=== PATIENT | female | born 1935 | race Caucasian/White ===

== ENCOUNTER 2020-11-12 11:38 | Outpatient (CLI) | payer MEDICARE ==
--- NOTE | 2020-11-12 12:52 | MMO ---
Bilateral MAMMO Bilat Screen [facility]. CLINICAL HISTORY: Patient is 85 years old and is seen for screening. The patient has no family history of breast cancer. The patient has no personal history of cancer. The patient has a history of left Excisional Biopsy in 2000 - benign findings and right Excisional Biopsy in ? - benign findings. VIEWS: The views performed were: bilateral craniocaudal with tomosynthesis and bilateral mediolateral oblique with tomosynthesis. FILMS COMPARED: The present examination has been compared to prior imaging studies performed at [facility] on 12/31/2015, 02/24/2017, 03/22/2018 and 04/25/2019. This study has been interpreted with the assistance of computer-aided detection. MAMMOGRAM FINDINGS: There are scattered fibroglandular densities. There are stable benign appearing calcifications seen in both breasts. There are no suspicious masses, suspicious calcifications, or new areas of architectural distortion. IMPRESSION: THERE IS NO MAMMOGRAPHIC EVIDENCE OF MALIGNANCY. A ROUTINE FOLLOW-UP MAMMOGRAM IN 1 YEAR IS RECOMMENDED. THE RESULTS OF THIS EXAM WERE SENT TO THE PATIENT. ACR BI-RADS Category 2 - Benign finding MAMMOGRAPHY NOTE: 1. A negative mammogram report should not delay a biopsy if a dominant of clinically suspicious mass is present. 2. Approximately 10% to 15% of breast cancers are not detected by mammography. 3. Adenosis and dense breasts may obscure an underlying neoplasm. Reported by: ANNELISE CANTU MD Electonically Signed: [id number]
== END 2020-11-12 11:39 | disposition home or self-care (01) ==
LOC: BICMAMMO 11:38
PROVIDERS: ATTEND Internal Medicine
DX: Z12.31 Encounter for screening mammogram for malignant neoplasm of breast (principal); Z91.89 Other specified personal risk factors, not elsewhere classified
CPT/HCPCS: 77063; 77067

== ENCOUNTER 2021-06-30 16:53 | Emergency (ER) | payer MEDICARE ==
[2021-06-30 19:00] LABS: #Basophils 0.1 thou/uL (0.0-0.2); #Eosinphils 0.1 thou/uL (0.0-0.7); #Lymphocytes 1.6 thou/uL (1.20-3.40); #Monocytes 0.5 thou/uL (0.11-0.59); #Neutrophils 4.1 thou/uL (1.40-6.50); %Basophils 0.8 % (0.0-1.0); %Lymphocytes 25.7 % (21.0-51.0); %Monocytes 7.4 % (0.0-10.0); %Neutrophils 64.1 % (42.0-75.0); Hemoglobin 14.2 g/dL (12.0-16.0); Mean Corpuscular HGB CONC 33.1 g/dL (32.0-36.0); Mean Corpuscular Hemoglobin 31.3 pg (27.0-31.0); Mean Corpuscular Volume 94.5 fL (78.0-98.0); Mean Platelet Volume 8.5 fL (7.4-10.4); Platelet Count 158 thou/uL (130-400); RBC Distribution Width 12.6 % (11.5-14.5); Red Blood Cell (RBC) Count 4.53 mill/uL (4.20-5.40); White Blood Cell (WBC) Count 6.4 thou/uL (4.8-10.8)
[2021-06-30 19:10] LABS: Prothrombin Time 13.7 sec (12.0-14.7)
[2021-06-30 19:33] LABS: ALT (SGPT) 18 U/L (8-55); AST (SGOT) 26 U/L (5-34); Albumin 4.4 g/dL (3.4-4.8); Alkaline Phosphatase 97 U/L (40-110); Anion Gap 14 mmol/L (10-20); BUN (Urea Nitrogen) 12 mg/dL (9.8-20.1); Bilirubin, Total 1.2 mg/dL (0.2-1.2); Calc. Creatinine Clearance 0 mL/min (70-130); Calcium 10.1 mg/dL (7.8-10.44); Carbon Dioxide 25 mmol/L (23-31); Chloride 105 mmol/L (98-107); Globulin 3.1 g/dL (2.4-3.5); Glucose 94 mg/dL (83-110); Potassium 3.6 mmol/L (3.5-5.1); Protein, Total 7.5 g/dL (5.8-8.1); Sodium 140 mmol/L (136-145)
== END 2021-06-30 19:35 | disposition home or self-care (01) ==
LOC: ERS 16:53
DX: D68.9 Coagulation defect, unspecified (principal); Z79.899 Other long term (current) drug therapy; Z79.82 Long term (current) use of aspirin; G47.30 Sleep apnea, unspecified; I48.91 Unspecified atrial fibrillation; I11.0 Hypertensive heart disease with heart failure; I50.9 Heart failure, unspecified; J43.9 Emphysema, unspecified; Z87.891 Personal history of nicotine dependence
CPT/HCPCS: 36415; 80053; 85025; 85610; 85730; 99283

== ENCOUNTER 2022-02-24 08:29 | Inpatient (IN) | payer MEDICARE ==
[2022-02-24] MEDS ORDERED: Ondansetron PF 4 MG/2 ML Vial ONE (09:14)
[2022-02-24] MEDS ORDERED: methylPREDNISolone Sod Succ/PF 125 MG/2 ML VIAL ONE (09:14)
[2022-02-24 09:30] LABS: #Basophils 0.1 thou/uL (0.0-0.2); #Eosinphils 0.3 thou/uL (0.0-0.7); #Lymphocytes 0.8 thou/uL (1.20-3.40); #Monocytes 0.6 thou/uL (0.11-0.59); #Neutrophils 5.9 thou/uL (1.40-6.50); %Basophils 1.1 % (0.0-1.0); %Eosinophils 4.3 % (0.0-10.0); %Lymphocytes 10.5 % (21.0-51.0); %Monocytes 7.5 % (0.0-10.0); %Neutrophils 76.6 % (42.0-75.0); Hemoglobin 13.7 g/dL (12.0-16.0); Mean Corpuscular HGB CONC 33.2 g/dL (32.0-36.0); Mean Corpuscular Hemoglobin 31.7 pg (27.0-31.0); Mean Corpuscular Volume 95.5 fL (78.0-98.0); Platelet Count 182 thou/uL (130-400); RBC Distribution Width 12.3 % (11.5-14.5); Red Blood Cell (RBC) Count 4.33 mill/uL (4.20-5.40); White Blood Cell (WBC) Count 7.7 thou/uL (4.8-10.8)
[2022-02-24 09:40] LABS: Prothrombin Time 13.4 sec (12.0-14.7)
[2022-02-24 09:50] LABS: ALT (SGPT) 19 U/L (8-55); AST (SGOT) 27 U/L (5-34); Albumin 4.1 g/dL (3.4-4.8); Alkaline Phosphatase 95 U/L (40-110); Anion Gap 12 mmol/L (10-20); BUN (Urea Nitrogen) 15 mg/dL (9.8-20.1); Bilirubin, Total 0.7 mg/dL (0.2-1.2); Calc. Creatinine Clearance 0 mL/min (70-130); Calcium 9.7 mg/dL (7.8-10.44); Carbon Dioxide 28 mmol/L (23-31); Chloride 105 mmol/L (98-107); Globulin 2.9 g/dL (2.4-3.5); Glucose 102 mg/dL (83-110); Potassium 3.7 mmol/L (3.5-5.1); Sodium 141 mmol/L (136-145)
[2022-02-24] MEDS ORDERED: Aspirin Chewable 81 MG TAB ONE (12:01)
[2022-02-24 13:02] LABS: Troponin I 0.065 ng/mL (< 0.028)
[2022-02-24] MEDS ORDERED: Acetaminophen 325 MG TAB PO PRN (13:02)
[2022-02-24] MEDS ORDERED: Calcium Carbonate 500 MG ChewTAB PO PRN (13:02)
[2022-02-24] MEDS ORDERED: Ondansetron ODT 4 MG TAB PO PRN (13:02)
[2022-02-24] MEDS ORDERED: Albuterol Sulfate 2.5 mg/3 ml Neb NEB PRN (13:20)
[2022-02-24] MEDS ORDERED: Azithromycin 250 MG TAB PO SCH (13:30)
[2022-02-24] MEDS ORDERED: Simethicone Chewable 80 MG TAB PO PRN (15:10)
[2022-02-24 15:16] LABS: Troponin I 0.083 ng/mL (< 0.028)
[2022-02-24 15:26] LABS: SARS-CoV-2 PCR by NAA Not Detected (NotDetected)
[2022-02-24 17:55] LABS: Troponin I 0.092 ng/mL (< 0.028)
[2022-02-24] MEDS: ALPRAZolam 0.25 MG TAB PO SCH (20:01)
[2022-02-24] MEDS: Rosuvastatin 10 MG TAB PO SCH (20:02)
[2022-02-24] MEDS: Apixaban 2.5 MG TAB PO SCH (20:02)
[2022-02-24 20:52] LABS: Troponin I 0.084 ng/mL (< 0.028)
[2022-02-24 23:32] LABS: Troponin I 0.084 ng/mL (< 0.028)
[2022-02-25] MEDS: Digoxin 0.125 MG TAB PO SCH (08:52)
[2022-02-25] MEDS: predniSONE 20 MG TAB PO SCH (08:53)
[2022-02-25] MEDS: Senokot S 8.6-50 MG TAB PO PRN ×2 (08:53→20:48)
[2022-02-25] MEDS: Potassium Chloride 10 MEQ TAB PO SCH (08:53)
[2022-02-25] MEDS: Lisinopril 20 MG TAB PO SCH (08:53)
[2022-02-25] MEDS: Furosemide 40 MG TAB PO SCH (08:53)
[2022-02-25] MEDS: Multivitamin W/ Minerals 1 TAB PO SCH (08:53)
[2022-02-25] MEDS: Aspirin 81 mg Enteric Coated Tablet PO SCH (08:53)
[2022-02-25] MEDS: Apixaban 2.5 MG TAB PO SCH ×2 (08:53→20:48)
[2022-02-25] MEDS: Calcium Carbonate 600 MG TAB PO SCH (08:53)
[2022-02-25] MEDS ORDERED: Doxycycline 100 MG CAP PO SCH (09:00)
[2022-02-25 09:57] VITALS: BMI 19.1
[2022-02-25] MEDS ORDERED: Azithromycin 250 MG TAB PO SCH (14:00)
[2022-02-25] MEDS: Doxycycline 100 MG CAP PO SCH (20:48)
[2022-02-25] MEDS: ALPRAZolam 0.25 MG TAB PO SCH (20:48)
[2022-02-25] MEDS: guaiFENesin ER 600 MG TAB PO SCH (20:49)
[2022-02-25] MEDS: Rosuvastatin 10 MG TAB PO SCH (20:49)
[2022-02-26] MEDS ORDERED: Docusate 100 MG CAP PO PRN (06:14)
[2022-02-26] MEDS: Potassium Chloride 10 MEQ TAB PO SCH (08:23)
[2022-02-26] MEDS: Apixaban 2.5 MG TAB PO SCH (08:24)
[2022-02-26] MEDS: predniSONE 20 MG TAB PO SCH (08:24)
[2022-02-26] MEDS: Calcium Carbonate 600 MG TAB PO SCH (08:25)
[2022-02-26] MEDS: Aspirin 81 mg Enteric Coated Tablet PO SCH (08:25)
[2022-02-26] MEDS: Furosemide 40 MG TAB PO SCH (08:26)
[2022-02-26] MEDS: Doxycycline 100 MG CAP PO SCH (08:27)
[2022-02-26] MEDS: Digoxin 0.125 MG TAB PO SCH (08:28)
[2022-02-26] MEDS: Lisinopril 20 MG TAB PO SCH (08:28)
[2022-02-26] MEDS: Multivitamin W/ Minerals 1 TAB PO SCH (08:29)
[2022-02-26] MEDS: guaiFENesin ER 600 MG TAB PO SCH (08:30)
[2022-02-26] MEDS ORDERED: Senokot S 8.6-50 MG TAB PO SCH (09:00)
[2022-02-26] MEDS ORDERED: Azithromycin 250 MG TAB PO SCH (09:00)
[2022-02-26 12:40] VITALS: BP 160/72; TEMP 97.5
== END 2022-02-26 15:05 | disposition home or self-care (01) | DRG 191 ==
LOC: ERS 08:29 → 2SW 11:55 → OBSVTOIN 02-25 08:59
PROVIDERS: ADMIT Family Medicine; ATTEND Family Medicine
DX: J43.9 Emphysema, unspecified (principal); I48.20 Chronic atrial fibrillation, unspecified; I50.32 Chronic diastolic (congestive) heart failure; Z66 Do not resuscitate; Z20.822 Contact with and (suspected) exposure to COVID-19; I11.0 Hypertensive heart disease with heart failure; G47.33 Obstructive sleep apnea (adult) (pediatric); Z99.81 Dependence on supplemental oxygen; Z99.89 Dependence on other enabling machines and devices; Z88.0 Allergy status to penicillin; Z88.8 Allergy status to other drugs, medicaments and biological substances; Z79.82 Long term (current) use of aspirin; Z79.01 Long term (current) use of anticoagulants; Z79.899 Other long term (current) drug therapy; Z90.710 Acquired absence of both cervix and uterus; Z90.09 Acquired absence of other part of head and neck; Z98.890 Other specified postprocedural states; Z82.3 Family history of stroke; Z82.49 Family history of ischemic heart disease and other diseases of the circulatory system; Z80.8 Family history of malignant neoplasm of other organs or systems; Z87.891 Personal history of nicotine dependence
CPT/HCPCS: 36415; 71045; 80053; 83605; 83880; 84484; 85025; 85610; 85730; 87040; 93005; 93306; 93798; 94640; 94760; 96374; 96375; G0378; J2405; J2930; J7512; J7620; U0003; U0005

== ENCOUNTER 2022-07-28 20:55 | Emergency (ER) | payer MEDICARE ==
[2022-07-28] MEDS ORDERED: Furosemide 40 MG/4 ML VIAL ONE (21:36)
[2022-07-28 22:02] LABS: #Basophils 0.1 thou/uL (0.0-0.2); #Eosinphils 0.1 thou/uL (0.0-0.7); #Lymphocytes 1.4 thou/uL (1.20-3.40); #Monocytes 0.6 thou/uL (0.11-0.59); %Basophils 1.3 % (0.0-1.0); %Eosinophils 1.4 % (0.0-10.0); %Lymphocytes 26.6 % (21.0-51.0); %Monocytes 12.1 % (0.0-10.0); %Neutrophils 58.6 % (42.0-75.0); Hemoglobin 8.8 g/dL (12.0-16.0); Mean Corpuscular Hemoglobin 28.7 pg (27.0-31.0); Mean Corpuscular Volume 89.7 fL (78.0-98.0); Mean Platelet Volume 8.8 fL (7.4-10.4); Platelet Count 174 thou/uL (130-400); RBC Distribution Width 14.5 % (11.5-14.5); Red Blood Cell (RBC) Count 3.06 mill/uL (4.20-5.40); White Blood Cell (WBC) Count 5.1 thou/uL (4.8-10.8)
[2022-07-28 22:26] LABS: ALT (SGPT) 34 U/L (8-55); AST (SGOT) 38 U/L (5-34); Albumin 3.6 g/dL (3.4-4.8); Alkaline Phosphatase 88 U/L (40-110); Anion Gap 12 mmol/L (10-20); BUN (Urea Nitrogen) 19 mg/dL (9.8-20.1); Bilirubin, Total 0.9 mg/dL (0.2-1.2); Calc. Creatinine Clearance 0 mL/min (70-130); Calcium 9.2 mg/dL (7.8-10.44); Carbon Dioxide 23 mmol/L (23-31); Chloride 109 mmol/L (98-107); Estimated GFR 48; Globulin 2.2 g/dL (2.4-3.5); Glucose 99 mg/dL (83-110); Potassium 3.5 mmol/L (3.5-5.1); Protein, Total 5.8 g/dL (5.8-8.1); Sodium 140 mmol/L (136-145)
[2022-07-28 23:19] LABS: Bilirubin Negative (Negative); Blood, Urine 1+ (Negative); Clarity Clear (Clear); Glucose, Urine (Dipstick) Normal (Negative); Ketone, Urine Negative (Negative); Leukocyte Negative Leu/uL (Negative); Nitrite Negative (Negative); Protein, Urine (Dipstick) 10 mg/dL (Neg-Trace); Specific Gravity, Urine 1.008 (1.002-1.036); Urobilinogen Normal mg/dL (Less than 2)
[2022-07-28 23:27] LABS: RBC/HPF 0-3 HPF (0-3); Squamous Epithelial 0-3 HPF (0-3); WBC/HPF 0-3 HPF (0-3)
[2022-07-28 23:28] LABS: Bacteria/HPF None Seen HPF (None Seen)
== END 2022-07-29 00:12 ==
LOC: ERS 20:55
DX: I11.0 Hypertensive heart disease with heart failure (principal); I50.9 Heart failure, unspecified; J43.9 Emphysema, unspecified; I48.91 Unspecified atrial fibrillation; Z87.891 Personal history of nicotine dependence; M79.605 Pain in left leg; M79.604 Pain in right leg
CPT/HCPCS: 71045; 80053; 81003; 81015; 83880; 85025; 93005; 93970; 96374; J1940

== ENCOUNTER 2022-08-11 12:16 | Outpatient (CLI) | payer MEDICARE | END 2022-08-11 12:17 | disposition home or self-care (01) | LOC: CT 12:16 | PROVIDERS: ATTEND Obstetrics & Gynecology | DX: R31.9 Hematuria, unspecified (principal); K80.20 Calculus of gallbladder without cholecystitis without obstruction; N28.89 Other specified disorders of kidney and ureter; K40.90 Unilateral inguinal hernia, without obstruction or gangrene, not specified as recurrent; I51.7 Cardiomegaly | CPT/HCPCS: 74176 ==

== ENCOUNTER 2022-08-12 04:57 | Inpatient (IN) | payer MEDICARE ==
[2022-08-12 05:39] LABS: #Basophils 0.1 thou/uL (0.0-0.2); #Lymphocytes 0.9 thou/uL (1.20-3.40); #Monocytes 0.6 thou/uL (0.11-0.59); #Neutrophils 2.4 thou/uL (1.40-6.50); %Basophils 1.2 % (0.0-1.0); %Eosinophils 0.6 % (0.0-10.0); %Lymphocytes 23.3 % (21.0-51.0); %Monocytes 14.6 % (0.0-10.0); %Neutrophils 60.2 % (42.0-75.0); Hemoglobin 6.7 g/dL (12.0-16.0); Mean Corpuscular Hemoglobin 27.3 pg (27.0-31.0); Mean Platelet Volume 8.5 fL (7.4-10.4); Platelet Count 177 thou/uL (130-400); RBC Distribution Width 15.2 % (11.5-14.5); Red Blood Cell (RBC) Count 2.47 mill/uL (4.20-5.40)
[2022-08-12 06:01] LABS: ALT (SGPT) 27 U/L (8-55); AST (SGOT) 47 U/L (5-34); Albumin 3.5 g/dL (3.4-4.8); Alkaline Phosphatase 71 U/L (40-110); Anion Gap 9 mmol/L (10-20); BUN (Urea Nitrogen) 22 mg/dL (9.8-20.1); Bilirubin, Total 0.8 mg/dL (0.2-1.2); Calc. Creatinine Clearance 0 mL/min (70-130); Calcium 9.1 mg/dL (7.8-10.44); Carbon Dioxide 26 mmol/L (23-31); Chloride 107 mmol/L (98-107); Estimated GFR 42; Globulin 2.3 g/dL (2.4-3.5); Glucose 91 mg/dL (83-110); Potassium 3.6 mmol/L (3.5-5.1); Protein, Total 5.8 g/dL (5.8-8.1); Sodium 138 mmol/L (136-145)
[2022-08-12 06:26] LABS: CKMB 7.9 ng/mL (0-6.6)
[2022-08-12 09:03] LABS: Troponin I 0.013 ng/mL (< 0.028)
[2022-08-12 09:50] LABS: Bilirubin Negative (Negative); Blood, Urine 3+ (Negative); Clarity Clear (Clear); Glucose, Urine (Dipstick) Normal (Negative); Ketone, Urine Negative (Negative); Leukocyte 75 Leu/uL (Negative); Nitrite Negative (Negative); Protein, Urine (Dipstick) 200 mg/dL (Neg-Trace); RBC/HPF Greater than 50 HPF (0-3); Specific Gravity, Urine 1.021 (1.002-1.036); Squamous Epithelial 0-3 HPF (0-3); Urobilinogen Normal mg/dL (Less than 2); WBC/HPF 21-50 HPF (0-3); pH, Urine 6.5 (5.0-9.0)
[2022-08-12 09:51] LABS: Bacteria/HPF 1+ HPF (None Seen)
[2022-08-12] MEDS ORDERED: Ondansetron ODT 4 MG TAB PO PRN (09:54)
[2022-08-12 10:02] LABS: Iron 14 ug/dL (50-170); Iron Binding Capacity, Total 496 mcg/dL (265-497); Reticulocyte Count 2.6 % (0.5-1.5)
[2022-08-12 10:14] LABS: Troponin I 0.031 ng/mL (< 0.028)
[2022-08-12] MEDS ORDERED: guaiFENesin ER 600 MG TAB PO PRN (11:04)
[2022-08-12] MEDS ORDERED: Furosemide 40 MG/4 ML VIAL SLOW IVP SCH (12:00)
[2022-08-12] MEDS ORDERED: Furosemide 40 MG/4 ML VIAL ONE (12:29)
[2022-08-12 13:26] LABS: SARS-CoV-2 NAA Rapid Test Not Detected (NotDetected)
[2022-08-12] MEDS ORDERED: FLU VACC QS2022-23(65YR UP)/PF 240 MCG/0.7 ML SYRINGE IM ONE (14:45)
[2022-08-12] MEDS ORDERED: GoLYTELY 4,000 ml Bottle PO SCH (17:30)
[2022-08-12] MEDS ORDERED: Non-Formulary Item 1 EACH (Potassium Chloride [Potassium Chloride] 20 MEQ Tablet.Er) PO SCH (21:00)
[2022-08-12] MEDS ORDERED: ALPRAZolam 0.5 MG TAB PO SCH (21:00)
[2022-08-12] MEDS ORDERED: ALPRAZolam 0.25 MG TAB PO SCH (21:00)
[2022-08-12] MEDS: Rosuvastatin 20 MG TAB PO SCH (21:16)
[2022-08-12] MEDS: Potassium Chloride 20 MEQ TAB PO SCH (21:16)
[2022-08-12] MEDS: Pantoprazole 40 MG VIAL IVP SCH (21:16)
[2022-08-13] MEDS ORDERED: Furosemide 40 MG/4 ML VIAL SLOW IVP SCH ×3 (04:45→15:45)
[2022-08-13 04:56] LABS: #Basophils 0.1 thou/uL (0.0-0.2); #Monocytes 0.8 thou/uL (0.11-0.59); #Neutrophils 3.6 thou/uL (1.40-6.50); %Basophils 1.1 % (0.0-1.0); %Eosinophils 0.5 % (0.0-10.0); %Lymphocytes 18.4 % (21.0-51.0); %Monocytes 14.4 % (0.0-10.0); %Neutrophils 65.6 % (42.0-75.0); Hemoglobin 7.9 g/dL (12.0-16.0); Mean Corpuscular HGB CONC 30.3 g/dL (32.0-36.0); Mean Corpuscular Volume 89.1 fL (78.0-98.0); Mean Platelet Volume 9.2 fL (7.4-10.4); Platelet Count 171 thou/uL (130-400); RBC Distribution Width 15.4 % (11.5-14.5); Red Blood Cell (RBC) Count 2.91 mill/uL (4.20-5.40); White Blood Cell (WBC) Count 5.4 thou/uL (4.8-10.8)
[2022-08-13 05:32] LABS: Anion Gap 13 mmol/L (10-20); BUN (Urea Nitrogen) 23 mg/dL (9.8-20.1); Calc. Creatinine Clearance 28 mL/min (70-130); Calcium 8.8 mg/dL (7.8-10.44); Carbon Dioxide 23 mmol/L (23-31); Chloride 104 mmol/L (98-107); Estimated GFR 44; Glucose 89 mg/dL (83-110); Potassium 3.6 mmol/L (3.5-5.1); Sodium 136 mmol/L (136-145)
[2022-08-13] MEDS ORDERED: Non-Formulary Item 1 EACH (Multivitamin/Iron/Folic Acid [Centrum Complete Multivitamin] 1 PO SCH (09:00)
[2022-08-13] MEDS ORDERED: Non-Formulary Item 1 EACH (Amlodipine Besylate [Norvasc] 2.5 MG Tablet) PO SCH (09:00)
[2022-08-13] MEDS ORDERED: PROPOFOL 200 MG/20 ML VIAL ONE ×2 (09:06→09:15)
[2022-08-13] MEDS ORDERED: Lidocaine 1% PF 5 ML VIAL ONE (09:15)
[2022-08-13] MEDS ORDERED: Ondansetron HCl/PF 4 MG/2 ML Vial IVP PRN (09:30)
[2022-08-13] MEDS ORDERED: GoLYTELY 4,000 ml Bottle PO SCH (09:32)
[2022-08-13] MEDS: Multivit, Therapeutic 1 TAB PO SCH (10:51)
[2022-08-13] MEDS: Calcium Carbonate 600 MG TAB PO SCH (10:51)
[2022-08-13] MEDS: Pantoprazole 40 MG VIAL IVP SCH ×2 (10:51→21:17)
[2022-08-13] MEDS: Amlodipine 5 MG TAB PO SCH (10:51)
[2022-08-13] MEDS: Potassium Chloride 20 MEQ TAB PO SCH ×2 (10:51→21:11)
[2022-08-13] MEDS: ALPRAZolam 1 MG TAB PO SCH (21:11)
[2022-08-13] MEDS: Rosuvastatin 20 MG TAB PO SCH (21:11)
[2022-08-14] MEDS ORDERED: Melatonin 3 MG TAB PO PRN (01:26)
[2022-08-14] MEDS ORDERED: Acetaminophen 325 MG TAB PO PRN (01:26)
[2022-08-14] MEDS ORDERED: Acetaminophen 325 MG TAB PO SCH (01:45)
[2022-08-14 06:41] LABS: Anion Gap 12 mmol/L (10-20); BUN (Urea Nitrogen) 19 mg/dL (9.8-20.1); Calc. Creatinine Clearance 27 mL/min (70-130); Calcium 9.1 mg/dL (7.8-10.44); Carbon Dioxide 31 mmol/L (23-31); Chloride 104 mmol/L (98-107); Estimated GFR 42; Glucose 89 mg/dL (83-110); Sodium 144 mmol/L (136-145)
[2022-08-14 06:46] LABS: Potassium 2.7 mmol/L (3.5-5.1)
[2022-08-14] MEDS ORDERED: Potassium Chloride 40 MEQ in Sodium Chloride 0.9% 250 ML 250 ML IVPB SCH (07:30)
[2022-08-14 08:46] LABS: Anisocytosis SLIGHT = 6-15 cells (100X) (0-5/hpf); Band 4 % (5-11); Eosinophils 1 % (0-10); Hemoglobin 7.9 g/dL (12.0-16.0); Hypochromia SLIGHT = 6-15 cells (100X) (0-5/hpf); Lymphocytes 17 % (21-51); MDiff Complete? YES; Mean Corpuscular HGB CONC 31.3 g/dL (32.0-36.0); Mean Corpuscular Hemoglobin 27.6 pg (27.0-31.0); Mean Corpuscular Volume 88.1 fL (78.0-98.0); Mean Platelet Volume 8.6 fL (7.4-10.4); Metamyelocyte 1 % (0-0); Monocytes 10 % (0-10); Neutrophil 65 % (42-75); Platelet Count 185 thou/uL (130-400); Platelet Morphology Comment Appears Adequate; Polychromasia SLIGHT = 2-3 cells (100X) (0-2/hpf); RBC Distribution Width 15.2 % (11.5-14.5); Reactive Lymphocytes 1 % (0-10); Red Blood Cell (RBC) Count 2.85 mill/uL (4.20-5.40); White Blood Cell (WBC) Count 4.9 thou/uL (4.8-10.8)
[2022-08-14] MEDS ORDERED: PROPOFOL 200 MG/20 ML VIAL ONE (09:26)
[2022-08-14] MEDS ORDERED: PHENYLEPHRINE-NS 100 MCG/ML 10 ML SYRINGE ONE (09:26)
[2022-08-14] MEDS ORDERED: Lidocaine 1% PF 5 ML VIAL ONE (09:26)
[2022-08-14] MEDS ORDERED: Promethazine HCl 25 MG/ML VIAL IVPB PRN ×2 (09:43→10:31)
[2022-08-14] MEDS ORDERED: Promethazine HCl 25 MG/ML VIAL IM PRN ×2 (09:43→10:31)
[2022-08-14] MEDS ORDERED: Ondansetron HCl/PF 4 MG/2 ML Vial IVP PRN ×2 (09:43→10:31)
[2022-08-14] MEDS ORDERED: Fentanyl 100 MCG/2 ML VIAL ONE (10:53)
[2022-08-14] MEDS ORDERED: Iron, Sodium Ferric Gluconate 250 MG in Sodium Chloride 0.9% 250 ML 250 ML IVPB SCH ×2 (11:47→16:36)
[2022-08-14] MEDS: Furosemide 40 MG/4 ML VIAL SLOW IVP SCH (12:29)
[2022-08-14] MEDS: Calcium Carbonate 600 MG TAB PO SCH (12:31)
[2022-08-14] MEDS: Multivit, Therapeutic 1 TAB PO SCH (12:31)
[2022-08-14] MEDS: Pantoprazole 40 MG VIAL IVP SCH ×2 (12:32→20:18)
[2022-08-14 14:10] LABS: Magnesium 2.2 mg/dL (1.6-2.6)
[2022-08-14] MEDS: Amlodipine 5 MG TAB PO SCH (15:42)
[2022-08-14] MEDS: Potassium Chloride 20 MEQ TAB PO SCH ×2 (15:43→18:19)
[2022-08-14] MEDS: Rosuvastatin 20 MG TAB PO SCH (20:17)
[2022-08-14] MEDS: ALPRAZolam 1 MG TAB PO SCH (20:17)
[2022-08-14 21:04] LABS: Anion Gap 16 mmol/L (10-20); BUN (Urea Nitrogen) 17 mg/dL (9.8-20.1); Calc. Creatinine Clearance 23 mL/min (70-130); Calcium 8.6 mg/dL (7.8-10.44); Carbon Dioxide 22 mmol/L (23-31); Chloride 105 mmol/L (98-107); Estimated GFR 35; Glucose 134 mg/dL (83-110); Potassium 3.7 mmol/L (3.5-5.1); Sodium 139 mmol/L (136-145)
[2022-08-15 06:58] LABS: #Lymphocytes 0.6 thou/uL (1.20-3.40); #Monocytes 0.7 thou/uL (0.11-0.59); #Neutrophils 4.3 thou/uL (1.40-6.50); %Basophils 0.8 % (0.0-1.0); %Eosinophils 0.3 % (0.0-10.0); %Lymphocytes 11.2 % (21.0-51.0); %Monocytes 12.9 % (0.0-10.0); %Neutrophils 74.8 % (42.0-75.0); Hemoglobin 7.4 g/dL (12.0-16.0); Mean Corpuscular HGB CONC 30.7 g/dL (32.0-36.0); Mean Corpuscular Hemoglobin 27.2 pg (27.0-31.0); Mean Corpuscular Volume 88.7 fL (78.0-98.0); Mean Platelet Volume 8.8 fL (7.4-10.4); Platelet Count 173 thou/uL (130-400); RBC Distribution Width 15.3 % (11.5-14.5); Red Blood Cell (RBC) Count 2.71 mill/uL (4.20-5.40); White Blood Cell (WBC) Count 5.7 thou/uL (4.8-10.8)
[2022-08-15 07:09] LABS: Anion Gap 9 mmol/L (10-20); BUN (Urea Nitrogen) 14 mg/dL (9.8-20.1); Calc. Creatinine Clearance 29 mL/min (70-130); Calcium 8.8 mg/dL (7.8-10.44); Carbon Dioxide 28 mmol/L (23-31); Chloride 106 mmol/L (98-107); Estimated GFR 46; Glucose 90 mg/dL (83-110); Sodium 140 mmol/L (136-145)
[2022-08-15] MEDS: Amlodipine 5 MG TAB PO SCH (08:48)
[2022-08-15] MEDS: Multivit, Therapeutic 1 TAB PO SCH (08:52)
[2022-08-15] MEDS: Calcium Carbonate 600 MG TAB PO SCH (08:52)
[2022-08-15] MEDS: Potassium Chloride 20 MEQ TAB PO SCH ×2 (08:52→17:00)
[2022-08-15] MEDS: Furosemide 40 MG/4 ML VIAL SLOW IVP SCH (08:53)
[2022-08-15] MEDS: Pantoprazole 40 MG VIAL IVP SCH ×2 (08:54→19:46)
[2022-08-15] MEDS ORDERED: Potassium Chloride 20 MEQ TAB PO SCH ×2 (09:32→10:17)
[2022-08-15] MEDS: ALPRAZolam 1 MG TAB PO SCH (19:45)
[2022-08-15] MEDS: Rosuvastatin 20 MG TAB PO SCH (19:45)
[2022-08-15] MEDS: Apixaban 2.5 MG TAB PO SCH (19:45)
[2022-08-16 05:39] LABS: Anion Gap 10 mmol/L (10-20); BUN (Urea Nitrogen) 15 mg/dL (9.8-20.1); Calc. Creatinine Clearance 29 mL/min (70-130); Calcium 9.1 mg/dL (7.8-10.44); Carbon Dioxide 26 mmol/L (23-31); Chloride 108 mmol/L (98-107); Estimated GFR 46; Glucose 102 mg/dL (83-110); Potassium 3.6 mmol/L (3.5-5.1); Sodium 140 mmol/L (136-145)
[2022-08-16 08:05] LABS: Hemoglobin 7.4 g/dL (12.0-16.0); Mean Corpuscular HGB CONC 30.3 g/dL (32.0-36.0); Mean Corpuscular Volume 89.1 fL (78.0-98.0); Mean Platelet Volume 8.8 fL (7.4-10.4); Platelet Count 182 thou/uL (130-400); RBC Distribution Width 15.5 % (11.5-14.5); Red Blood Cell (RBC) Count 2.73 mill/uL (4.20-5.40); White Blood Cell (WBC) Count 4.6 thou/uL (4.8-10.8)
[2022-08-16] MEDS: Potassium Chloride 20 MEQ TAB PO SCH ×2 (09:00→18:13)
[2022-08-16] MEDS: Ferrous Sulfate 325 MG TAB PO SCH (09:00)
[2022-08-16] MEDS: Amlodipine 5 MG TAB PO SCH (09:00)
[2022-08-16] MEDS: Apixaban 2.5 MG TAB PO SCH ×2 (09:01→20:59)
[2022-08-16] MEDS: Multivit, Therapeutic 1 TAB PO SCH (09:01)
[2022-08-16] MEDS: Calcium Carbonate 600 MG TAB PO SCH (09:01)
[2022-08-16] MEDS: Aspirin 81 mg Enteric Coated Tablet PO SCH (09:01)
[2022-08-16] MEDS: Pantoprazole 40 MG VIAL IVP SCH ×2 (09:02→12:35)
[2022-08-16 09:18] LABS: Band 1 % (5-11); Hypochromia MODERATE=16-30 cells (100X) (0-5/hpf); Lymphocytes 23 % (21-51); MDiff Complete? YES; Monocytes 9 % (0-10); Neutrophil 62 % (42-75); Ovalocytes SLIGHT = 2-5 cells (100X) (0-1/hpf); Platelet Morphology Comment Appears Adequate; Polychromasia MODERATE = 3-4 cells (100X) (0-2/hpf); Reactive Lymphocytes 4 % (0-10)
[2022-08-16] MEDS ORDERED: Iopamidol 370 76% 100 ML VIAL ONE (11:49)
[2022-08-16] MEDS ORDERED: Furosemide 40 MG/4 ML VIAL SLOW IVP SCH (13:00)
[2022-08-16] MEDS: ALPRAZolam 1 MG TAB PO SCH (20:58)
[2022-08-16] MEDS: Rosuvastatin 20 MG TAB PO SCH (20:58)
[2022-08-17 06:10] LABS: Anion Gap 10 mmol/L (10-20); BUN (Urea Nitrogen) 14 mg/dL (9.8-20.1); Calc. Creatinine Clearance 34 mL/min (70-130); Carbon Dioxide 26 mmol/L (23-31); Chloride 106 mmol/L (98-107); Estimated GFR 57; Glucose 122 mg/dL (83-110); Potassium 3.9 mmol/L (3.5-5.1); Sodium 138 mmol/L (136-145)
[2022-08-17 06:36] LABS: Band 2 % (5-11); Eosinophils 2 % (0-10); Hemoglobin 8.6 g/dL (12.0-16.0); Hypochromia SLIGHT = 6-15 cells (100X) (0-5/hpf); Lymphocytes 23 % (21-51); MDiff Complete? YES; Mean Corpuscular HGB CONC 30.6 g/dL (32.0-36.0); Mean Corpuscular Hemoglobin 27.7 pg (27.0-31.0); Mean Corpuscular Volume 90.4 fL (78.0-98.0); Mean Platelet Volume 8.8 fL (7.4-10.4); Monocytes 6 % (0-10); Neutrophil 67 % (42-75); Platelet Count 190 thou/uL (130-400); RBC Distribution Width 15.4 % (11.5-14.5); Red Blood Cell (RBC) Count 3.11 mill/uL (4.20-5.40); White Blood Cell (WBC) Count 4.2 thou/uL (4.8-10.8)
[2022-08-17 06:37] VITALS: BMI 18.8
[2022-08-17] MEDS: Ferrous Sulfate 325 MG TAB PO SCH (08:14)
[2022-08-17] MEDS: Amlodipine 5 MG TAB PO SCH (08:15)
[2022-08-17] MEDS: Potassium Chloride 20 MEQ TAB PO SCH (08:15)
[2022-08-17] MEDS: Aspirin 81 mg Enteric Coated Tablet PO SCH (08:17)
[2022-08-17] MEDS: Furosemide 40 MG TAB PO SCH ×2 (08:17→14:36)
[2022-08-17] MEDS: Calcium Carbonate 600 MG TAB PO SCH (08:17)
[2022-08-17] MEDS: Multivit, Therapeutic 1 TAB PO SCH (08:17)
[2022-08-17] MEDS: Apixaban 2.5 MG TAB PO SCH (08:17)
[2022-08-17 11:51] VITALS: TEMP 98.4
[2022-08-17 12:02] VITALS: BP 137/76
[2022-08-18 12:48] LABS: EliA Celiac New Method **** NEW METHOD ****; t-Transglutaminase (tTG) IgA 0.2 EliAU/mL (<7 Negative)
== END 2022-08-17 15:00 | DRG 291 ==
LOC: ERS 04:57 → ERHOLD 06:22 → NEURO 12:51 → OBSVTOIN 08-13 16:25
PROVIDERS: ADMIT Emergency Medicine; ATTEND Emergency Medicine
PROC: 30233N1 Transfusion of Nonautologous Red Blood Cells into Peripheral Vein, Percutaneous Approach (ICD-10-PCS; 2022-08-12)
PROC: 0DJ08ZZ Inspection of Upper Intestinal Tract, Via Natural or Artificial Opening Endoscopic (ICD-10-PCS; principal; 2022-08-13)
PROC: 0DJD8ZZ Inspection of Lower Intestinal Tract, Via Natural or Artificial Opening Endoscopic (ICD-10-PCS; 2022-08-14)
DX: I11.0 Hypertensive heart disease with heart failure (principal); I50.33 Acute on chronic diastolic (congestive) heart failure; K57.31 Diverticulosis of large intestine without perforation or abscess with bleeding; K55.21 Angiodysplasia of colon with hemorrhage; N17.9 Acute kidney failure, unspecified; K92.1 Melena; I48.91 Unspecified atrial fibrillation; J44.9 Chronic obstructive pulmonary disease, unspecified; G47.30 Sleep apnea, unspecified; D50.9 Iron deficiency anemia, unspecified; K59.00 Constipation, unspecified; E78.5 Hyperlipidemia, unspecified; I42.9 Cardiomyopathy, unspecified; I08.0 Rheumatic disorders of both mitral and aortic valves; E87.6 Hypokalemia; Z20.822 Contact with and (suspected) exposure to COVID-19; Z88.0 Allergy status to penicillin; Z88.8 Allergy status to other drugs, medicaments and biological substances; Z79.01 Long term (current) use of anticoagulants; Z79.899 Other long term (current) drug therapy; Z79.82 Long term (current) use of aspirin; Z98.890 Other specified postprocedural states; Z90.710 Acquired absence of both cervix and uterus; Z90.89 Acquired absence of other organs; Z87.891 Personal history of nicotine dependence
CPT/HCPCS: 36415; 36430; 71045; 74177; 80048; 80053; 81003; 81015; 82274; 82553; 82607; 82728; 83516; 83540; 83550; 83735; 83880; 84484; 85025; 85046; 86850; 86900; 86901; 93005; 93306; 93798; 96374; 96375; 96376; C9113; G0378; J1940; J2704; J2916; J3010; J3480; J7050; P9016; Q9967; U0002

== ENCOUNTER 2022-09-09 13:05 | Emergency (ER) | payer MEDICARE ==
[2022-09-09 14:33] LABS: #Eosinphils 0.1 thou/uL (0.0-0.7); #Lymphocytes 0.8 thou/uL (1.20-3.40); #Monocytes 0.3 thou/uL (0.11-0.59); #Neutrophils 2.5 thou/uL (1.40-6.50); %Basophils 1.1 % (0.0-1.0); %Eosinophils 1.4 % (0.0-10.0); %Lymphocytes 20.9 % (21.0-51.0); %Monocytes 8.6 % (0.0-10.0); %Neutrophils 68.1 % (42.0-75.0); Mean Corpuscular HGB CONC 31.1 g/dL (32.0-36.0); Mean Corpuscular Hemoglobin 30.3 pg (27.0-31.0); Mean Corpuscular Volume 97.3 fl (78.0-98.0); Platelet Count 197 thou/uL (130-400); RBC Distribution Width 20.4 % (11.5-14.5); Red Blood Cell (RBC) Count 2.98 mill/uL (4.20-5.40); White Blood Cell (WBC) Count 3.7 thou/uL (4.8-10.8)
[2022-09-09 14:38] LABS: ALT (SGPT) 22 U/L (8-55); AST (SGOT) 28 U/L (5-34); Albumin 3.6 g/dL (3.4-4.8); Alkaline Phosphatase 78 U/L (40-110); Anion Gap 10 mmol/L (10-20); BUN (Urea Nitrogen) 18 mg/dL (9.8-20.1); Bilirubin, Total 0.5 mg/dL (0.2-1.2); Calc. Creatinine Clearance 0 mL/min (70-130); Carbon Dioxide 26 mmol/L (23-31); Chloride 107 mmol/L (98-107); Estimated GFR 41; Globulin 2.4 g/dL (2.4-3.5); Glucose 71 mg/dL (83-110); Potassium 4.1 mmol/L (3.5-5.1); Sodium 139 mmol/L (136-145)
[2022-09-09 14:50] LABS: SARS-CoV-2 NAA Rapid Test Not Detected (NotDetected)
== END 2022-09-09 15:18 ==
LOC: ERS 13:05
DX: R05.1 Acute cough (principal); J43.9 Emphysema, unspecified; I11.0 Hypertensive heart disease with heart failure; I50.9 Heart failure, unspecified; E78.5 Hyperlipidemia, unspecified; Z20.822 Contact with and (suspected) exposure to COVID-19; Z79.899 Other long term (current) drug therapy; Z79.82 Long term (current) use of aspirin; Z87.891 Personal history of nicotine dependence
CPT/HCPCS: 0240U; 71045; 80053; 83880; 84484; 85025; 93005; 36415

== ENCOUNTER 2022-11-16 15:39 | Outpatient (CLI) | payer MEDICARE | END 2022-11-16 15:40 | disposition home or self-care (01) | LOC: ULT 15:39 | PROVIDERS: ATTEND Urology | DX: N28.1 Cyst of kidney, acquired (principal) | CPT/HCPCS: 76770 ==

== ENCOUNTER 2022-12-13 15:01 | Inpatient (IN) | payer MEDICARE ==
[2022-12-13] MEDS ORDERED: cefTRIAXone\\ROCEPHIN 1 GM VIAL ONE (15:39)
[2022-12-13] MEDS ORDERED: Azithromycin 500 MG VIAL ONE (15:39)
[2022-12-13 15:52] LABS: #Basophils 0.1 thou/uL (0.0-0.2); #Eosinphils 0.1 thou/uL (0.0-0.7); #Lymphocytes 0.7 thou/uL (1.20-3.40); #Monocytes 0.6 thou/uL (0.11-0.59); #Neutrophils 3.6 thou/uL (1.40-6.50); %Eosinophils 2.6 % (0.0-10.0); %Lymphocytes 13.4 % (21.0-51.0); %Monocytes 12.3 % (0.0-10.0); %Neutrophils 70.7 % (42.0-75.0); Hemoglobin 12.1 g/dL (12.0-16.0); Mean Corpuscular HGB CONC 31.4 g/dL (32.0-36.0); Mean Corpuscular Volume 95.5 fl (78.0-98.0); Mean Platelet Volume 8.5 fL (7.4-10.4); Platelet Count 173 10x3/uL (130-400); Red Blood Cell (RBC) Count 4.02 mill/uL (4.20-5.40); White Blood Cell (WBC) Count 5.1 10x3/uL (4.8-10.8)
[2022-12-13 16:12] LABS: ALT (SGPT) 25 U/L (8-55); AST (SGOT) 30 U/L (5-34); Albumin 3.9 g/dL (3.4-4.8); Alkaline Phosphatase 100 U/L (40-110); Anion Gap 11 mmol/L (10-20); BUN (Urea Nitrogen) 16 mg/dL (9.8-20.1); Bilirubin, Total 0.6 mg/dL (0.2-1.2); Calc. Creatinine Clearance 0 mL/min (70-130); Calcium 9.5 mg/dL (7.8-10.44); Carbon Dioxide 30 mmol/L (23-31); Chloride 103 mmol/L (98-107); Estimated GFR 42; Globulin 2.4 g/dL (2.4-3.5); Glucose 91 mg/dL (83-110); Potassium 3.3 mmol/L (3.5-5.1); Protein, Total 6.3 g/dL (5.8-8.1); Sodium 141 mmol/L (136-145)
[2022-12-13 17:21] LABS: Bacteria/HPF None Seen HPF (None Seen); Bilirubin Negative (Negative); Blood, Urine 1+ (Negative); Clarity Clear (Clear); Glucose, Urine (Dipstick) Normal (Negative); Ketone, Urine Negative (Negative); Leukocyte 250 Leu/uL (Negative); Nitrite Negative (Negative); Protein, Urine (Dipstick) 50 mg/dL (Neg-Trace); Specific Gravity, Urine 1.012 (1.002-1.036); Squamous Epithelial 0-3 HPF (0-3); Urobilinogen Normal mg/dL (Less than 2); pH, Urine 6.5 (5.0-9.0)
[2022-12-13] MEDS ORDERED: Furosemide 40 MG/4 ML VIAL ONE (17:50)
[2022-12-13] MEDS ORDERED: Acetaminophen 325 MG TAB PO PRN (18:31)
[2022-12-13] MEDS ORDERED: Ipratropium/Albuterol 3 ML NEB NEB PRN (18:41)
[2022-12-13] MEDS ORDERED: Potassium Chloride 20 MEQ TAB PO SCH (18:45)
[2022-12-13] MEDS ORDERED: Ipratropium/Albuterol 3 ML NEB NEB SCH (19:00)
[2022-12-13] MEDS ORDERED: Melatonin 3 MG TAB PO PRN (19:32)
[2022-12-13] MEDS: Ipratropium/Albuterol 3 ML NEB NEB SCH (21:47)
[2022-12-13 22:03] LABS: SARS-CoV-2 NAA Rapid Test Not Detected (NotDetected)
[2022-12-13] MEDS: Apixaban 2.5 MG TAB PO SCH (22:09)
[2022-12-13] MEDS: guaiFENesin ER 600 MG TAB PO SCH (22:09)
[2022-12-13] MEDS: ALPRAZolam 0.25 MG TAB PO SCH (22:10)
[2022-12-13 22:17] VITALS: BMI 19.5
[2022-12-13] MEDS: predniSONE 20 MG TAB PO SCH (23:09)
[2022-12-14] MEDS: Ipratropium/Albuterol 3 ML NEB NEB SCH ×6 (01:08→22:18)
[2022-12-14 05:40] LABS: ALT (SGPT) 25 U/L (8-55); AST (SGOT) 29 U/L (5-34); Albumin 3.5 g/dL (3.4-4.8); Alkaline Phosphatase 89 U/L (40-110); Anion Gap 13 mmol/L (10-20); BUN (Urea Nitrogen) 16 mg/dL (9.8-20.1); Bilirubin, Total 0.5 mg/dL (0.2-1.2); Calc. Creatinine Clearance 32 mL/min (70-130); Calcium 9.4 mg/dL (7.8-10.44); Carbon Dioxide 25 mmol/L (23-31); Chloride 106 mmol/L (98-107); Estimated GFR 49; Globulin 2.8 g/dL (2.4-3.5); Glucose 122 mg/dL (83-110); Potassium 3.3 mmol/L (3.5-5.1); Protein, Total 6.3 g/dL (5.8-8.1); Sodium 141 mmol/L (136-145)
[2022-12-14 05:43] LABS: #Lymphocytes 0.5 thou/uL (1.20-3.40); #Monocytes 0.1 thou/uL (0.11-0.59); #Neutrophils 3.5 thou/uL (1.40-6.50); %Basophils 0.5 % (0.0-1.0); %Eosinophils 0.2 % (0.0-10.0); %Lymphocytes 12.9 % (21.0-51.0); %Neutrophils 83.4 % (42.0-75.0); Mean Corpuscular HGB CONC 31.1 g/dL (32.0-36.0); Mean Corpuscular Volume 96.6 fl (78.0-98.0); Mean Platelet Volume 8.7 fL (7.4-10.4); Platelet Count 181 10x3/uL (130-400); Red Blood Cell (RBC) Count 3.99 mill/uL (4.20-5.40); White Blood Cell (WBC) Count 4.1 10x3/uL (4.8-10.8)
[2022-12-14] MEDS ORDERED: Furosemide 40 MG/4 ML VIAL SLOW IVP SCH (06:00)
[2022-12-14] MEDS: Mometasone 100 MCG/Formoterol 5 MCG 120 PUFF INHALER INH SCH ×2 (07:32→18:52)
[2022-12-14 08:59] LABS: Magnesium 2.3 mg/dL (1.6-2.6)
[2022-12-14] MEDS: Potassium Chloride 20 MEQ TAB PO SCH ×2 (09:48→17:43)
[2022-12-14] MEDS: Rosuvastatin 20 MG TAB PO SCH (09:48)
[2022-12-14] MEDS: Ferrous Sulfate 325 MG TAB PO SCH (09:48)
[2022-12-14] MEDS: guaiFENesin ER 600 MG TAB PO SCH ×2 (09:49→21:09)
[2022-12-14] MEDS: Apixaban 2.5 MG TAB PO SCH ×2 (09:49→21:11)
[2022-12-14] MEDS: Fish Oil 1,000 MG CAP PO SCH (09:50)
[2022-12-14] MEDS: predniSONE 20 MG TAB PO SCH (09:50)
[2022-12-14] MEDS: Aspirin 81 mg Enteric Coated Tablet PO SCH (09:51)
[2022-12-14] MEDS: Calcium Carbonate 600 MG TAB PO SCH (09:51)
[2022-12-14] MEDS: Multivitamin W/ Minerals 1 TAB PO SCH (09:52)
[2022-12-14] MEDS: Fluticasone Propionate Nasal Spray 16 gm Bottle NASAL SCH (11:16)
[2022-12-14] MEDS ORDERED: Potassium Chloride 20 MEQ TAB PO SCH (12:00)
[2022-12-14] MEDS: Furosemide 40 MG TAB PO SCH (14:41)
[2022-12-14] MEDS: ALPRAZolam 0.25 MG TAB PO SCH (21:09)
[2022-12-15] MEDS: Ipratropium/Albuterol 3 ML NEB NEB SCH ×3 (00:06→10:45)
[2022-12-15] MEDS ORDERED: hydrOXYzine 25 MG TAB PO SCH (00:45)
[2022-12-15 06:56] LABS: #Monocytes 0.6 thou/uL (0.11-0.59); #Neutrophils 4.1 thou/uL (1.40-6.50); %Basophils 0.2 % (0.0-1.0); %Eosinophils 0.3 % (0.0-10.0); %Lymphocytes 17.1 % (21.0-51.0); %Monocytes 10.7 % (0.0-10.0); %Neutrophils 71.7 % (42.0-75.0); Hemoglobin 10.8 g/dL (12.0-16.0); Mean Corpuscular HGB CONC 30.8 g/dL (32.0-36.0); Mean Corpuscular Volume 97.2 fl (78.0-98.0); Mean Platelet Volume 8.2 fL (7.4-10.4); Platelet Count 171 10x3/uL (130-400); RBC Distribution Width 13.8 % (11.5-14.5); Red Blood Cell (RBC) Count 3.61 mill/uL (4.20-5.40); White Blood Cell (WBC) Count 5.6 10x3/uL (4.8-10.8)
[2022-12-15] MEDS: Mometasone 100 MCG/Formoterol 5 MCG 120 PUFF INHALER INH SCH (06:59)
[2022-12-15 07:16] LABS: Anion Gap 10 mmol/L (10-20); BUN (Urea Nitrogen) 21 mg/dL (9.8-20.1); Calc. Creatinine Clearance 63 mL/min (70-130); Calcium 9.2 mg/dL (7.8-10.44); Carbon Dioxide 28 mmol/L (23-31); Chloride 106 mmol/L (98-107); Estimated GFR 53; Glucose 87 mg/dL (83-110); Potassium 3.6 mmol/L (3.5-5.1); Sodium 140 mmol/L (136-145)
[2022-12-15] MEDS: Fish Oil 1,000 MG CAP PO SCH (09:47)
[2022-12-15] MEDS: Multivitamin W/ Minerals 1 TAB PO SCH (09:47)
[2022-12-15] MEDS: guaiFENesin ER 600 MG TAB PO SCH (09:48)
[2022-12-15] MEDS: Rosuvastatin 20 MG TAB PO SCH (09:49)
[2022-12-15] MEDS: Furosemide 40 MG TAB PO SCH ×2 (09:49→14:14)
[2022-12-15] MEDS: Aspirin 81 mg Enteric Coated Tablet PO SCH (09:50)
[2022-12-15] MEDS: predniSONE 20 MG TAB PO SCH (09:50)
[2022-12-15] MEDS: Potassium Chloride 20 MEQ TAB PO SCH ×2 (09:50→16:36)
[2022-12-15] MEDS: Ferrous Sulfate 325 MG TAB PO SCH (09:51)
[2022-12-15] MEDS: Apixaban 2.5 MG TAB PO SCH (09:51)
[2022-12-15] MEDS: Calcium Carbonate 600 MG TAB PO SCH (09:51)
[2022-12-15] MEDS: Fluticasone Propionate Nasal Spray 16 gm Bottle NASAL SCH (10:06)
[2022-12-15] MEDS ORDERED: Potassium Chloride 20 MEQ TAB PO SCH (11:30)
[2022-12-15 17:04] VITALS: BP 124/65; TEMP 97.9
[2022-12-16] MEDS ORDERED: FLU VACC QS2022-23(65YR UP)/PF 240 MCG/0.7 ML SYRINGE IM ONE (09:00)
== END 2022-12-15 17:32 | DRG 291 ==
LOC: ERS 15:01 → 2NO 17:09 → OBSVTOIN 12-14 11:42
PROVIDERS: ADMIT Family Medicine; ATTEND Family Medicine
DX: I11.0 Hypertensive heart disease with heart failure (principal); I50.33 Acute on chronic diastolic (congestive) heart failure; J96.01 Acute respiratory failure with hypoxia; J44.1 Chronic obstructive pulmonary disease with (acute) exacerbation; I25.10 Atherosclerotic heart disease of native coronary artery without angina pectoris; Z66 Do not resuscitate; F41.0 Panic disorder [episodic paroxysmal anxiety]; E87.6 Hypokalemia; E78.5 Hyperlipidemia, unspecified; G47.33 Obstructive sleep apnea (adult) (pediatric); G47.00 Insomnia, unspecified; K59.09 Other constipation; Z88.0 Allergy status to penicillin; Z91.048 Other nonmedicinal substance allergy status; Z88.8 Allergy status to other drugs, medicaments and biological substances; Z79.82 Long term (current) use of aspirin; Z79.899 Other long term (current) drug therapy; Z79.01 Long term (current) use of anticoagulants; Z90.710 Acquired absence of both cervix and uterus; Z90.09 Acquired absence of other part of head and neck
CPT/HCPCS: 36415; 71045; 80048; 80053; 81003; 81015; 83605; 83735; 83880; 84145; 84484; 85025; 87040; 87086; 93005; 94640; 94664; 96365; 96367; 96375; 96376; G0378; J0456; J0696; J1940; J7512; J7620

== ENCOUNTER 2023-03-04 18:28 | Inpatient (IN) | payer MEDICARE ==
[2023-03-04] MEDS ORDERED: methylPREDNISolone Sod Succ/PF 125 MG/2 ML VIAL ONE (18:47)
[2023-03-04] MEDS ORDERED: Ipratropium/Albuterol 3 ML NEB ONE (19:04)
[2023-03-04 19:12] LABS: #Eosinphils 0.1 thou/uL (0.0-0.7); #Monocytes 0.8 thou/uL (0.11-0.59); #Neutrophils 3.7 thou/uL (1.40-6.50); %Basophils 0.7 % (0.0-1.0); %Eosinophils 1.1 % (0.0-10.0); %Lymphocytes 18.6 % (21.0-51.0); %Monocytes 13.8 % (0.0-10.0); %Neutrophils 65.8 % (42.0-75.0); Hemoglobin 13.1 g/dL (12.0-16.0); Mean Corpuscular HGB CONC 32.9 g/dL (32.0-36.0); Mean Corpuscular Hemoglobin 30.8 pg (27.0-31.0); Mean Corpuscular Volume 93.4 fl (78.0-98.0); Platelet Count 120 10x3/uL (130-400); RBC Distribution Width 15.6 % (11.5-14.5); Red Blood Cell (RBC) Count 4.26 mill/uL (4.20-5.40); White Blood Cell (WBC) Count 5.6 10x3/uL (4.8-10.8)
[2023-03-04 19:35] LABS: ALT (SGPT) 33 U/L (8-55); AST (SGOT) 50 U/L (5-34); Albumin 3.9 g/dL (3.4-4.8); Alkaline Phosphatase 121 U/L (40-110); Anion Gap 16 mmol/L (10-20); BUN (Urea Nitrogen) 13 mg/dL (9.8-20.1); Calc. Creatinine Clearance 0 mL/min (70-130); Calcium 9.1 mg/dL (7.8-10.44); Carbon Dioxide 22 mmol/L (23-31); Chloride 103 mmol/L (98-107); Estimated GFR 60; Globulin 2.5 g/dL (2.4-3.5); Glucose 82 mg/dL (83-110); Potassium 4.1 mmol/L (3.5-5.1); Protein, Total 6.4 g/dL (5.8-8.1); Sodium 137 mmol/L (136-145)
[2023-03-04] MEDS ORDERED: Ipratropium/Albuterol 3 ML NEB NEB PRN (22:08)
[2023-03-04 22:18] LABS: SARS-CoV-2 NAA Rapid Test Not Detected (NotDetected)
[2023-03-04 22:59] VITALS: BMI 21.3
[2023-03-04] MEDS ORDERED: Polyethylene Glycol 3350 17 GM Packet PO SCH (23:15)
[2023-03-04 23:57] LABS: Lactic Acid 1.2 mmol/L (0.5-2.2)
[2023-03-05] MEDS: Azithromycin 500 MG in Sodium Chloride 0.9% 250 ML 250 ML IVPB SCH ×2 (00:28→21:52)
[2023-03-05] MEDS ORDERED: ALPRAZolam 0.25 MG TAB PO SCH ×2 (01:50→21:00)
[2023-03-05] MEDS: Melatonin 3 MG TAB PO PRN ×2 (01:57→21:58)
[2023-03-05] MEDS: cefTRIAXone\\ROCEPHIN 1 GM in Sodium Chloride 0.9% 100 ML IVPB SCH ×2 (01:57→23:23)
[2023-03-05 05:48] LABS: #Lymphocytes 0.5 thou/uL (1.20-3.40); #Monocytes 0.2 thou/uL (0.11-0.59); #Neutrophils 3.4 thou/uL (1.40-6.50); %Basophils 1.1 % (0.0-1.0); %Eosinophils 0.3 % (0.0-10.0); %Lymphocytes 10.9 % (21.0-51.0); %Monocytes 4.2 % (0.0-10.0); %Neutrophils 83.6 % (42.0-75.0); Hemoglobin 13.5 g/dL (12.0-16.0); Mean Corpuscular HGB CONC 33.9 g/dL (32.0-36.0); Mean Corpuscular Hemoglobin 31.9 pg (27.0-31.0); Mean Corpuscular Volume 94.2 fl (78.0-98.0); Mean Platelet Volume 9.4 fL (7.4-10.4); Platelet Count 102 10x3/uL (130-400); RBC Distribution Width 15.2 % (11.5-14.5); Red Blood Cell (RBC) Count 4.22 mill/uL (4.20-5.40); White Blood Cell (WBC) Count 4.1 10x3/uL (4.8-10.8)
[2023-03-05 06:01] LABS: ALT (SGPT) 34 U/L (8-55); AST (SGOT) 44 U/L (5-34); Albumin 3.9 g/dL (3.4-4.8); Alkaline Phosphatase 120 U/L (40-110); Anion Gap 16 mmol/L (10-20); BUN (Urea Nitrogen) 14 mg/dL (9.8-20.1); Bilirubin, Total 0.9 mg/dL (0.2-1.2); Calc. Creatinine Clearance 35 mL/min (70-130); Calcium 9.5 mg/dL (7.8-10.44); Carbon Dioxide 23 mmol/L (23-31); Chloride 102 mmol/L (98-107); Estimated GFR 51; Globulin 2.8 g/dL (2.4-3.5); Glucose 159 mg/dL (83-110); Potassium 3.6 mmol/L (3.5-5.1); Protein, Total 6.7 g/dL (5.8-8.1); Sodium 137 mmol/L (136-145)
[2023-03-05] MEDS: Mometasone 100 MCG/Formoterol 5 MCG 120 PUFF INHALER INH SCH ×2 (07:54→19:17)
[2023-03-05] MEDS: Fluticasone Propionate Nasal Spray 16 gm Bottle NASAL SCH (08:08)
[2023-03-05] MEDS: Polyethylene Glycol 3350 17 GM Packet PO SCH ×2 (08:09→21:53)
[2023-03-05] MEDS: Rosuvastatin 20 MG TAB PO SCH (08:10)
[2023-03-05] MEDS: Ferrous Sulfate 325 MG TAB PO SCH (08:10)
[2023-03-05] MEDS: Calcium Carbonate 600 MG TAB PO SCH (08:10)
[2023-03-05] MEDS: Fish Oil 1,000 MG CAP PO SCH (08:10)
[2023-03-05] MEDS: Potassium Chloride 20 MEQ TAB PO SCH ×2 (08:10→16:28)
[2023-03-05] MEDS: Apixaban 2.5 MG TAB PO SCH ×2 (08:10→21:54)
[2023-03-05] MEDS: Furosemide 40 MG TAB PO SCH ×2 (08:11→16:29)
[2023-03-05] MEDS: Multivit, Therapeutic 1 TAB PO SCH (08:11)
[2023-03-05] MEDS: Aspirin 81 mg Enteric Coated Tablet PO SCH (08:11)
[2023-03-05] MEDS: Sacubitril 24MG/Valsartan 26 MG TAB PO SCH ×2 (08:22→21:53)
[2023-03-05] MEDS: Senokot S 8.6-50 MG TAB PO SCH ×2 (08:51→21:53)
[2023-03-06 05:29] LABS: #Lymphocytes 1.2 thou/uL (1.20-3.40); #Monocytes 0.7 thou/uL (0.11-0.59); %Basophils 0.3 % (0.0-1.0); %Eosinophils 0.1 % (0.0-10.0); %Lymphocytes 14.9 % (21.0-51.0); %Monocytes 8.9 % (0.0-10.0); %Neutrophils 75.8 % (42.0-75.0); Hemoglobin 13.5 g/dL (12.0-16.0); Mean Corpuscular HGB CONC 34.1 g/dL (32.0-36.0); Mean Corpuscular Hemoglobin 32.2 pg (27.0-31.0); Mean Corpuscular Volume 94.5 fl (78.0-98.0); Mean Platelet Volume 9.7 fL (7.4-10.4); Platelet Count 131 10x3/uL (130-400); RBC Distribution Width 15.4 % (11.5-14.5); Red Blood Cell (RBC) Count 4.19 mill/uL (4.20-5.40); White Blood Cell (WBC) Count 7.9 10x3/uL (4.8-10.8)
[2023-03-06 07:07] LABS: Chloride Less than 65 mmol/L (98-107)
[2023-03-06] MEDS: Mometasone 100 MCG/Formoterol 5 MCG 120 PUFF INHALER INH SCH (07:24)
[2023-03-06 08:19] LABS: Albumin 3.5 g/dL (3.4-4.8)
[2023-03-06 08:20] LABS: Potassium 3.7 mmol/L (3.5-5.1); Sodium 140 mmol/L (136-145)
[2023-03-06 08:21] LABS: Calcium 9.6 mg/dL (7.8-10.44)
[2023-03-06 08:22] LABS: Globulin 2.5 g/dL (2.4-3.5); Glucose 85 mg/dL (83-110)
[2023-03-06 08:23] LABS: Anion Gap 15 mmol/L (10-20); Carbon Dioxide 23 mmol/L (23-31)
[2023-03-06 08:24] LABS: Alkaline Phosphatase 106 U/L (40-110); Bilirubin, Total 0.6 mg/dL (0.2-1.2)
[2023-03-06 08:25] LABS: Calc. Creatinine Clearance 42 mL/min (70-130); Estimated GFR 61
[2023-03-06 08:26] LABS: BUN (Urea Nitrogen) 18 mg/dL (9.8-20.1)
[2023-03-06 08:27] LABS: AST (SGOT) 51 U/L (5-34)
[2023-03-06 08:28] LABS: ALT (SGPT) 44 U/L (8-55)
[2023-03-06] MEDS ORDERED: Bisacodyl 10 MG SUPP PR SCH (09:00)
[2023-03-06] MEDS: Apixaban 2.5 MG TAB PO SCH (09:54)
[2023-03-06] MEDS: Sacubitril 24MG/Valsartan 26 MG TAB PO SCH (09:54)
[2023-03-06] MEDS: Rosuvastatin 20 MG TAB PO SCH (09:54)
[2023-03-06] MEDS: Potassium Chloride 20 MEQ TAB PO SCH (09:54)
[2023-03-06] MEDS: Fish Oil 1,000 MG CAP PO SCH (09:54)
[2023-03-06] MEDS: Ferrous Sulfate 325 MG TAB PO SCH (09:55)
[2023-03-06] MEDS: Furosemide 40 MG TAB PO SCH (09:55)
[2023-03-06] MEDS: Multivit, Therapeutic 1 TAB PO SCH (09:55)
[2023-03-06] MEDS: Aspirin 81 mg Enteric Coated Tablet PO SCH (09:55)
[2023-03-06] MEDS: Calcium Carbonate 600 MG TAB PO SCH (09:57)
[2023-03-06] MEDS: Senokot S 8.6-50 MG TAB PO SCH (10:03)
[2023-03-06] MEDS: Polyethylene Glycol 3350 17 GM Packet PO SCH (10:03)
[2023-03-06] MEDS: Fluticasone Propionate Nasal Spray 16 gm Bottle NASAL SCH (10:05)
[2023-03-06 10:45] LABS: Anion Gap 12 mmol/L (10-20); BUN (Urea Nitrogen) 19 mg/dL (9.8-20.1); Calc. Creatinine Clearance 36 mL/min (70-130); Calcium 9.7 mg/dL (7.8-10.44); Carbon Dioxide 26 mmol/L (23-31); Chloride 104 mmol/L (98-107); Estimated GFR 50; Glucose 174 mg/dL (83-110); Potassium 3.4 mmol/L (3.5-5.1); Sodium 139 mmol/L (136-145)
[2023-03-06] MEDS ORDERED: Potassium Chloride 20 MEQ TAB PO SCH (11:41)
[2023-03-06 12:31] VITALS: BP 131/87; TEMP 97.6
== END 2023-03-06 13:41 | DRG 193 ==
LOC: ERS 18:28 → 2SW 21:33
PROVIDERS: ADMIT Family Medicine; ATTEND Family Medicine
DX: J18.9 Pneumonia, unspecified organism (principal); J96.01 Acute respiratory failure with hypoxia; I50.22 Chronic systolic (congestive) heart failure; J44.0 Chronic obstructive pulmonary disease with (acute) lower respiratory infection; Z66 Do not resuscitate; Z20.822 Contact with and (suspected) exposure to COVID-19; D69.6 Thrombocytopenia, unspecified; I25.10 Atherosclerotic heart disease of native coronary artery without angina pectoris; I48.91 Unspecified atrial fibrillation; I11.0 Hypertensive heart disease with heart failure; F41.0 Panic disorder [episodic paroxysmal anxiety]; G47.00 Insomnia, unspecified; K59.09 Other constipation; K92.89 Other specified diseases of the digestive system; Z88.0 Allergy status to penicillin; Z79.82 Long term (current) use of aspirin; Z90.710 Acquired absence of both cervix and uterus; Z79.899 Other long term (current) drug therapy
CPT/HCPCS: 36415; 71045; 76700; 80053; 83605; 83880; 84145; 84484; 85025; 87081; 87430; 87631; 93005; 94640; 96374; J0456; J0696; J2930; J3490; J7050; J7620; U0002

== ENCOUNTER 2023-03-09 19:24 | Inpatient (IN) | payer MEDICARE ==
[2023-03-09] MEDS ORDERED: Diltiazem 125 MG/25 ML SDV ONE (20:00)
[2023-03-09 20:13] LABS: #Basophils 0.1 thou/uL (0.0-0.2); #Eosinphils 0.2 thou/uL (0.0-0.7); #Lymphocytes 1.2 thou/uL (1.20-3.40); #Monocytes 0.5 thou/uL (0.11-0.59); #Neutrophils 2.7 thou/uL (1.40-6.50); %Basophils 1.3 % (0.0-1.0); %Eosinophils 4.7 % (0.0-10.0); %Lymphocytes 25.8 % (21.0-51.0); %Monocytes 10.5 % (0.0-10.0); %Neutrophils 57.7 % (42.0-75.0); Mean Corpuscular Hemoglobin 31.2 pg (27.0-31.0); Mean Corpuscular Volume 91.8 fl (78.0-98.0); Mean Platelet Volume 8.3 fL (7.4-10.4); Platelet Count 183 10x3/uL (130-400); RBC Distribution Width 15.3 % (11.5-14.5); Red Blood Cell (RBC) Count 4.18 mill/uL (4.20-5.40); White Blood Cell (WBC) Count 4.6 10x3/uL (4.8-10.8)
[2023-03-09] MEDS ORDERED: Diltiazem HCl 125 MG, Admixture Fee 1 EACH in Sodium Chloride 0.9% 100 ML IVPB SCH (20:15)
[2023-03-09 20:42] LABS: ALT (SGPT) 29 U/L (8-55); AST (SGOT) 24 U/L (5-34); Albumin 3.8 g/dL (3.4-4.8); Alkaline Phosphatase 110 U/L (40-110); Anion Gap 14 mmol/L (10-20); BUN (Urea Nitrogen) 18 mg/dL (9.8-20.1); Bilirubin, Total 0.6 mg/dL (0.2-1.2); Calc. Creatinine Clearance 0 mL/min (70-130); Calcium 9.5 mg/dL (7.8-10.44); Carbon Dioxide 26 mmol/L (23-31); Chloride 103 mmol/L (98-107); Estimated GFR 42; Globulin 2.4 g/dL (2.4-3.5); Glucose 128 mg/dL (83-110); Lipase 49 U/L (8-78); Potassium 3.8 mmol/L (3.5-5.1); Protein, Total 6.2 g/dL (5.8-8.1); Sodium 139 mmol/L (136-145)
[2023-03-09] MEDS ORDERED: Diltiazem 125 MG in Sodium Chloride 0.9% 100 ML IVPB SCH (23:45)
[2023-03-09] MEDS ORDERED: Melatonin 3 MG TAB PO PRN (23:58)
[2023-03-10] MEDS ORDERED: ALPRAZolam 0.25 MG TAB PO SCH ×2 (00:15→21:00)
[2023-03-10 01:09] VITALS: BMI 21.7
[2023-03-10 04:41] LABS: #Eosinphils 0.2 thou/uL (0.0-0.7); #Lymphocytes 1.1 thou/uL (1.20-3.40); #Monocytes 0.6 thou/uL (0.11-0.59); #Neutrophils 2.7 thou/uL (1.40-6.50); %Eosinophils 4.2 % (0.0-10.0); %Lymphocytes 24.4 % (21.0-51.0); %Monocytes 11.8 % (0.0-10.0); %Neutrophils 58.5 % (42.0-75.0); Mean Corpuscular Hemoglobin 31.3 pg (27.0-31.0); Mean Corpuscular Volume 92.2 fl (78.0-98.0); Platelet Count 180 10x3/uL (130-400); RBC Distribution Width 15.4 % (11.5-14.5); Red Blood Cell (RBC) Count 4.15 mill/uL (4.20-5.40); White Blood Cell (WBC) Count 4.7 10x3/uL (4.8-10.8)
[2023-03-10 04:58] LABS: Anion Gap 13 mmol/L (10-20); BUN (Urea Nitrogen) 16 mg/dL (9.8-20.1); Calc. Creatinine Clearance 34 mL/min (70-130); Calcium 9.3 mg/dL (7.8-10.44); Carbon Dioxide 23 mmol/L (23-31); Chloride 107 mmol/L (98-107); Estimated GFR 53; Glucose 84 mg/dL (83-110); Potassium 3.4 mmol/L (3.5-5.1); Sodium 140 mmol/L (136-145)
[2023-03-10 05:53] LABS: Magnesium 2.1 mg/dL (1.6-2.6); Phosphorus 3.3 mg/dL (2.3-4.7)
[2023-03-10] MEDS ORDERED: Potassium Chloride 20 MEQ TAB PO SCH (07:15)
[2023-03-10] MEDS: Potassium Chloride 20 MEQ TAB PO SCH ×2 (08:47→17:07)
[2023-03-10] MEDS: Ferrous Sulfate 325 MG TAB PO SCH (08:48)
[2023-03-10] MEDS ORDERED: Metoprolol Tartrate 25 MG TAB PO SCH ×3 (10:15→21:00)
[2023-03-10] MEDS: Senokot S 8.6-50 MG TAB PO SCH ×2 (10:48→20:49)
[2023-03-10] MEDS: Multivitamin W/ Minerals 1 TAB PO SCH (10:49)
[2023-03-10] MEDS: Aspirin 81 mg Enteric Coated Tablet PO SCH (10:49)
[2023-03-10] MEDS: Polyethylene Glycol 3350 17 GM Packet PO SCH (10:49)
[2023-03-10] MEDS: Sacubitril 24MG/Valsartan 26 MG TAB PO SCH ×2 (10:49→20:50)
[2023-03-10] MEDS: Apixaban 2.5 MG TAB PO SCH ×2 (10:49→20:49)
[2023-03-10] MEDS: Furosemide 40 MG TAB PO SCH ×2 (10:49→14:50)
[2023-03-10] MEDS: Calcium Carbonate 600 MG TAB PO SCH (10:49)
[2023-03-10] MEDS: Fish Oil 1,000 MG CAP PO SCH (10:51)
[2023-03-10] MEDS: Rosuvastatin 20 MG TAB PO SCH (10:51)
[2023-03-10] MEDS: guaiFENesin ER 600 MG TAB PO SCH (20:49)
[2023-03-11] MEDS ORDERED: Acetaminophen 325 MG TAB PO PRN (02:38)
[2023-03-11 04:32] LABS: #Eosinphils 0.3 thou/uL (0.0-0.7); #Lymphocytes 1.1 thou/uL (1.20-3.40); #Monocytes 0.6 thou/uL (0.11-0.59); #Neutrophils 2.2 thou/uL (1.40-6.50); %Basophils 1.1 % (0.0-1.0); %Lymphocytes 27.1 % (21.0-51.0); %Monocytes 13.6 % (0.0-10.0); %Neutrophils 52.2 % (42.0-75.0); Hemoglobin 13.2 g/dL (12.0-16.0); Mean Corpuscular HGB CONC 32.5 g/dL (32.0-36.0); Mean Corpuscular Hemoglobin 30.5 pg (27.0-31.0); Mean Corpuscular Volume 93.8 fl (78.0-98.0); Mean Platelet Volume 8.1 fL (7.4-10.4); Platelet Count 190 10x3/uL (130-400); RBC Distribution Width 15.5 % (11.5-14.5); Red Blood Cell (RBC) Count 4.33 mill/uL (4.20-5.40); White Blood Cell (WBC) Count 4.2 10x3/uL (4.8-10.8)
[2023-03-11 04:47] LABS: Anion Gap 13 mmol/L (10-20); BUN (Urea Nitrogen) 15 mg/dL (9.8-20.1); Calc. Creatinine Clearance 32 mL/min (70-130); Calcium 9.3 mg/dL (7.8-10.44); Carbon Dioxide 23 mmol/L (23-31); Chloride 106 mmol/L (98-107); Estimated GFR 51; Glucose 81 mg/dL (83-110); Potassium 3.4 mmol/L (3.5-5.1); Sodium 139 mmol/L (136-145)
[2023-03-11] MEDS ORDERED: Potassium Chloride 20 MEQ TAB PO SCH (08:00)
[2023-03-11] MEDS: Sacubitril 24MG/Valsartan 26 MG TAB PO SCH (08:32)
[2023-03-11] MEDS: Polyethylene Glycol 3350 17 GM Packet PO SCH (08:32)
[2023-03-11] MEDS: Potassium Chloride 20 MEQ TAB PO SCH (08:33)
[2023-03-11] MEDS: Ferrous Sulfate 325 MG TAB PO SCH (08:33)
[2023-03-11] MEDS: Fish Oil 1,000 MG CAP PO SCH (08:34)
[2023-03-11] MEDS: Furosemide 40 MG TAB PO SCH (08:34)
[2023-03-11] MEDS: Calcium Carbonate 600 MG TAB PO SCH (08:34)
[2023-03-11] MEDS: guaiFENesin ER 600 MG TAB PO SCH (08:34)
[2023-03-11] MEDS: Apixaban 2.5 MG TAB PO SCH (08:34)
[2023-03-11] MEDS: Aspirin 81 mg Enteric Coated Tablet PO SCH (08:34)
[2023-03-11] MEDS: Rosuvastatin 20 MG TAB PO SCH (08:35)
[2023-03-11] MEDS: Multivitamin W/ Minerals 1 TAB PO SCH (08:35)
[2023-03-11] MEDS: Senokot S 8.6-50 MG TAB PO SCH (08:35)
[2023-03-11 12:14] VITALS: BP 148/87; TEMP 98.1
== END 2023-03-11 13:02 | DRG 309 ==
LOC: ERS 19:24 → 2SW 22:48 → OBSVTOIN 03-10 15:33
PROVIDERS: ADMIT Family Medicine; ATTEND Family Medicine
DX: I48.91 Unspecified atrial fibrillation (principal); E44.1 Mild protein-calorie malnutrition; I13.0 Hypertensive heart and chronic kidney disease with heart failure and stage 1 through stage 4 chronic kidney disease, or unspecified chronic kidney disease; N17.9 Acute kidney failure, unspecified; I50.9 Heart failure, unspecified; Z87.01 Personal history of pneumonia (recurrent); Z66 Do not resuscitate; N18.32 Chronic kidney disease, stage 3b; F41.0 Panic disorder [episodic paroxysmal anxiety]; E78.00 Pure hypercholesterolemia, unspecified; F41.9 Anxiety disorder, unspecified; R53.1 Weakness; K59.00 Constipation, unspecified; R00.1 Bradycardia, unspecified; K21.9 Gastro-esophageal reflux disease without esophagitis; I25.10 Atherosclerotic heart disease of native coronary artery without angina pectoris; R73.9 Hyperglycemia, unspecified; E87.6 Hypokalemia; Z79.01 Long term (current) use of anticoagulants; Z91.09 Other allergy status, other than to drugs and biological substances; Z88.0 Allergy status to penicillin; Z88.8 Allergy status to other drugs, medicaments and biological substances; Z79.82 Long term (current) use of aspirin; Z79.899 Other long term (current) drug therapy; Z90.710 Acquired absence of both cervix and uterus; Z90.89 Acquired absence of other organs; Z82.49 Family history of ischemic heart disease and other diseases of the circulatory system; Z83.3 Family history of diabetes mellitus; Z87.891 Personal history of nicotine dependence; Z68.21 Body mass index [BMI] 21.0-21.9, adult; G47.33 Obstructive sleep apnea (adult) (pediatric); I42.9 Cardiomyopathy, unspecified
CPT/HCPCS: 36415; 71045; 80048; 80053; 83690; 83735; 83880; 84100; 84484; 85025; 93005; 94760; J3490

== ENCOUNTER 2023-10-20 02:41 | Emergency (ER) | payer MEDICARE ==
[2023-10-20] MEDS ORDERED: Tranexamic Acid 1,000 MG/10 ML VIAL ONE (03:08)
== END 2023-10-20 04:47 | disposition home or self-care (01) ==
LOC: ERS 02:41
DX: K91.840 Postprocedural hemorrhage of a digestive system organ or structure following a digestive system procedure (principal); I11.0 Hypertensive heart disease with heart failure; I50.9 Heart failure, unspecified; J43.9 Emphysema, unspecified; I48.91 Unspecified atrial fibrillation; I25.10 Atherosclerotic heart disease of native coronary artery without angina pectoris; E78.5 Hyperlipidemia, unspecified; Z79.01 Long term (current) use of anticoagulants; Z79.82 Long term (current) use of aspirin; Z87.891 Personal history of nicotine dependence; Z79.899 Other long term (current) drug therapy
CPT/HCPCS: 99283

== ENCOUNTER 2023-12-15 09:31 | Outpatient (CLI) | payer MEDICARE | END 2023-12-15 09:32 | disposition home or self-care (01) | LOC: RAD 09:31 | PROVIDERS: ATTEND Internal Medicine Critical Care Medicine | DX: R06.00 Dyspnea, unspecified (principal); I51.7 Cardiomegaly; Q32.1 Other congenital malformations of trachea | CPT/HCPCS: 71046 ==

== ENCOUNTER 2023-12-21 16:26 | Inpatient (IN) | payer MEDICARE ==
[2023-12-21 18:17] LABS: #Monocytes 0.4 thou/uL (0.11-0.59); #Neutrophils 5.1 thou/uL (1.40-6.50); %Basophils 0.5 % (0.0-1.0); %Eosinophils 0.3 % (0.0-10.0); %Lymphocytes 5.1 % (21.0-51.0); %Monocytes 7.4 % (0.0-10.0); %Neutrophils 86.5 % (42.0-75.0); Hematocrit 46.9 % (36.0-47.0); Hemoglobin 15.4 g/dL (12.0-16.0); Mean Corpuscular HGB CONC 32.8 g/dL (32.0-36.0); Mean Corpuscular Hemoglobin 32.6 pg (27.0-31.0); Mean Corpuscular Volume 99.4 fl (78.0-98.0); Mean Platelet Volume 12.2 fL (7.4-10.4); Platelet Count 91 10x3/uL (130-400); RBC Distribution Width 17.6 % (11.5-14.5); Red Blood Cell (RBC) Count 4.72 mill/uL (4.20-5.40); White Blood Cell (WBC) Count 5.9 10x3/uL (4.8-10.8)
[2023-12-21] MEDS ORDERED: Cefepime 2 GM VIAL ONE (18:24)
[2023-12-21] MEDS ORDERED: Sodium Chloride 0.9% 100 ML ONE (18:25)
[2023-12-21 18:41] LABS: SARS-CoV-2 NAA Rapid Test Not Detected (NotDetected)
[2023-12-21] MEDS ORDERED: LevoFLOXacin 750 mg/D5W 150 ml Premix Bag ONE (19:23)
[2023-12-21 19:37] LABS: Albumin 3.9 g/dL (3.4-4.8)
[2023-12-21 19:38] LABS: Chloride 108 mmol/L (98-107); Potassium 5.1 mmol/L (3.5-5.1); Sodium 137 mmol/L (136-145)
[2023-12-21 19:39] LABS: Calcium 9.8 mg/dL (7.8-10.44); Glucose 112 mg/dL (83-110)
[2023-12-21 19:40] LABS: Globulin 2.5 g/dL (2.4-3.5); Protein, Total 6.4 g/dL (5.8-8.1)
[2023-12-21 19:41] LABS: Anion Gap 13 mmol/L (10-20); Bilirubin, Total 1.4 mg/dL (0.2-1.2); Carbon Dioxide 21 mmol/L (23-31)
[2023-12-21 19:42] LABS: Alkaline Phosphatase 102 U/L (40-110)
[2023-12-21 19:43] LABS: BUN (Urea Nitrogen) 20 mg/dL (9.8-20.1); Calc. Creatinine Clearance 0 mL/min (70-130); Estimated GFR 49
[2023-12-21 19:44] LABS: AST (SGOT) 53 U/L (5-34)
[2023-12-21 19:45] LABS: ALT (SGPT) 46 U/L (8-55)
[2023-12-21 20:06] LABS: Troponin I 0.013 ng/mL (< 0.028)
[2023-12-21] MEDS ORDERED: Oseltamivir 75 MG CAP ONE (20:53)
[2023-12-21] MEDS: Ipratropium/Albuterol 3 ML NEB NEB SCH (21:58)
[2023-12-21] MEDS ORDERED: Acetaminophen 325 MG TAB ONE (22:20)
[2023-12-21] MEDS: Acetaminophen 325 MG TAB PO PRN (22:24)
[2023-12-21] MEDS: Melatonin 3 MG TAB PO PRN (22:34)
[2023-12-21] MEDS ORDERED: Metoprolol Tartrate 25 MG TAB ONE ×2 (22:45→22:47)
[2023-12-21] MEDS ORDERED: Vancomycin Dose by Levels Sliding Scale (Wt <71) FS SCH (23:45)
[2023-12-22 00:03] LABS: Legionella Urinary Ag Negative (Negative); Strep pneumo Urine Ag NEGATIVE (NEGATIVE)
[2023-12-22 00:07] LABS: Bacteria/HPF 1+ HPF (None Seen); Bilirubin Negative (Negative); Blood, Urine 3+ (Negative); Clarity Turbid (Clear); Glucose, Urine (Dipstick) Normal (Negative); Ketone, Urine Negative (Negative); Leukocyte 75 Leu/uL (Negative); Nitrite Negative (Negative); Protein, Urine (Dipstick) 100 mg/dL (Neg-Trace); RBC/HPF Greater than 50 HPF (0-3); Specific Gravity, Urine 1.025 (1.002-1.036); Squamous Epithelial 0-3 HPF (0-3); Urobilinogen Normal mg/dL (Less than 2)
[2023-12-22 00:08] LABS: Troponin I Less than 0.010 ng/mL (< 0.028)
[2023-12-22] MEDS: Vancomycin (BATCH) 1.25 GM in Premix 1 BAG IVPB SCH (00:30)
[2023-12-22] MEDS: methylPREDNISolone Sod Succ/PF 125 MG/2 ML VIAL IVP SCH (00:30)
[2023-12-22 02:34] LABS: #Monocytes 0.5 thou/uL (0.11-0.59); %Basophils 0.4 % (0.0-1.0); %Lymphocytes 4.5 % (21.0-51.0); %Neutrophils 84.9 % (42.0-75.0); Hematocrit 41.6 % (36.0-47.0); Hemoglobin 13.8 g/dL (12.0-16.0); Mean Corpuscular HGB CONC 33.2 g/dL (32.0-36.0); Mean Corpuscular Hemoglobin 32.5 pg (27.0-31.0); Mean Corpuscular Volume 98.1 fl (78.0-98.0); Mean Platelet Volume 11.5 fL (7.4-10.4); RBC Distribution Width 17.2 % (11.5-14.5); Red Blood Cell (RBC) Count 4.24 mill/uL (4.20-5.40); White Blood Cell (WBC) Count 4.7 10x3/uL (4.8-10.8)
[2023-12-22 02:39] LABS: Platelet Count 81 10x3/uL (130-400)
[2023-12-22] MEDS: ALPRAZolam 0.25 MG TAB PO SCH ×2 (02:57→20:44)
[2023-12-22 03:03] LABS: Magnesium 2.1 mg/dL (1.6-2.6); Phosphorus 3.4 mg/dL (2.3-4.7)
[2023-12-22 03:12] LABS: ALT (SGPT) 44 U/L (8-55); AST (SGOT) 47 U/L (5-34); Albumin 3.7 g/dL (3.4-4.8); Alkaline Phosphatase 89 U/L (40-110); Anion Gap 14 mmol/L (10-20); BUN (Urea Nitrogen) 19 mg/dL (9.8-20.1); Bilirubin, Total 1.3 mg/dL (0.2-1.2); Calc. Creatinine Clearance 34 mL/min (70-130); Calcium 9.4 mg/dL (7.8-10.44); Carbon Dioxide 23 mmol/L (23-31); Chloride 108 mmol/L (98-107); Estimated GFR 55; Globulin 2.1 g/dL (2.4-3.5); Glucose 100 mg/dL (83-110); Protein, Total 5.8 g/dL (5.8-8.1); Sodium 140 mmol/L (136-145)
[2023-12-22] MEDS: methylPREDNISolone Sod Succ 40 MG VIAL IVP SCH (05:22)
[2023-12-22] MEDS: Cefepime 1 GM in Sodium Chloride 0.9% 100 ML IVPB SCH (05:22)
[2023-12-22] MEDS: Rosuvastatin 20 MG TAB PO SCH (08:55)
[2023-12-22] MEDS: Multivitamin W/ Minerals 1 TAB PO SCH (08:55)
[2023-12-22] MEDS: Apixaban 2.5 MG TAB PO SCH (08:55)
[2023-12-22] MEDS: Furosemide 40 MG TAB PO SCH (08:55)
[2023-12-22] MEDS: Fish Oil 1,000 MG CAP PO SCH (08:55)
[2023-12-22] MEDS: Ferrous Sulfate 325 MG TAB PO SCH (08:55)
[2023-12-22] MEDS: Aspirin 81 mg Enteric Coated Tablet PO SCH (08:55)
[2023-12-22] MEDS: Sacubitril 24MG/Valsartan 26 MG TAB PO SCH (08:56)
[2023-12-22] MEDS: Calcium Carbonate 600 MG TAB PO SCH (08:56)
[2023-12-22] MEDS: Polyethylene Glycol 3350 17 GM Packet PO SCH (08:57)
[2023-12-22] MEDS: Senokot S 8.6-50 MG TAB PO SCH (08:57)
[2023-12-22] MEDS ORDERED: Heparin 5,000 UNITS/ML VIAL SC SCH (09:00)
[2023-12-22] MEDS: Potassium Chloride 20 MEQ TAB PO SCH (11:43)
[2023-12-22] MEDS: cefTRIAXone\\ROCEPHIN 1 GM in Sodium Chloride 0.9% 100 ML IVPB SCH (18:19)
[2023-12-22] MEDS ORDERED: methylPREDNISolone Sod Succ/PF 125 MG/2 ML VIAL IVP SCH (21:00)
[2023-12-22] MEDS: Oseltamivir 6 MG/ML ORAL SUSP PO SCH (22:41)
[2023-12-23 05:45] LABS: #Monocytes 0.5 thou/uL (0.11-0.59); #Neutrophils 5.5 thou/uL (1.40-6.50); %Lymphocytes 5.1 % (21.0-51.0); %Monocytes 7.5 % (0.0-10.0); %Neutrophils 87.1 % (42.0-75.0); Hematocrit 43.1 % (36.0-47.0); Hemoglobin 14.5 g/dL (12.0-16.0); Mean Corpuscular HGB CONC 33.6 g/dL (32.0-36.0); Mean Platelet Volume 12.2 fL (7.4-10.4); RBC Distribution Width 17.1 % (11.5-14.5); White Blood Cell (WBC) Count 6.3 10x3/uL (4.8-10.8)
[2023-12-23 05:47] LABS: Platelet Count 88 10x3/uL (130-400)
[2023-12-23 06:08] LABS: ALT (SGPT) 49 U/L (8-55); AST (SGOT) 52 U/L (5-34); Albumin 3.7 g/dL (3.4-4.8); Alkaline Phosphatase 90 U/L (40-110); Anion Gap 11 mmol/L (10-20); BUN (Urea Nitrogen) 22 mg/dL (9.8-20.1); Bilirubin, Total 0.9 mg/dL (0.2-1.2); Calc. Creatinine Clearance 30 mL/min (70-130); Calcium 9.3 mg/dL (7.8-10.44); Carbon Dioxide 29 mmol/L (23-31); Chloride 103 mmol/L (98-107); Estimated GFR 46; Globulin 2.2 g/dL (2.4-3.5); Glucose 145 mg/dL (83-110); Potassium 3.8 mmol/L (3.5-5.1); Protein, Total 5.9 g/dL (5.8-8.1); Sodium 139 mmol/L (136-145)
[2023-12-23] MEDS: Cefdinir 300 MG CAP PO SCH (20:51)
[2023-12-24 06:23] LABS: #Monocytes 0.6 thou/uL (0.11-0.59); #Neutrophils 6.1 thou/uL (1.40-6.50); %Basophils 0.1 % (0.0-1.0); %Monocytes 8.6 % (0.0-10.0); Hematocrit 45.7 % (36.0-47.0); Hemoglobin 15.1 g/dL (12.0-16.0); Mean Corpuscular Hemoglobin 32.6 pg (27.0-31.0); Mean Corpuscular Volume 98.7 fl (78.0-98.0); Mean Platelet Volume 11.5 fL (7.4-10.4); Platelet Count 103 10x3/uL (130-400); RBC Distribution Width 17.2 % (11.5-14.5); Red Blood Cell (RBC) Count 4.63 mill/uL (4.20-5.40); White Blood Cell (WBC) Count 7.4 10x3/uL (4.8-10.8)
[2023-12-24 06:45] LABS: ALT (SGPT) 54 U/L (8-55); AST (SGOT) 65 U/L (5-34); Albumin 3.5 g/dL (3.4-4.8); Alkaline Phosphatase 87 U/L (40-110); Anion Gap 11 mmol/L (10-20); BUN (Urea Nitrogen) 24 mg/dL (9.8-20.1); Bilirubin, Total 0.8 mg/dL (0.2-1.2); Calc. Creatinine Clearance 31 mL/min (70-130); Calcium 9.3 mg/dL (7.8-10.44); Carbon Dioxide 33 mmol/L (23-31); Chloride 100 mmol/L (98-107); Estimated GFR 49; Globulin 2.4 g/dL (2.4-3.5); Glucose 100 mg/dL (83-110); Potassium 3.8 mmol/L (3.5-5.1); Protein, Total 5.9 g/dL (5.8-8.1); Sodium 140 mmol/L (136-145)
[2023-12-24] MEDS: methylPREDNISolone Sod Succ 40 MG VIAL IVP SCH (10:24)
[2023-12-25 05:12] LABS: #Monocytes 0.5 thou/uL (0.11-0.59); #Neutrophils 4.6 thou/uL (1.40-6.50); %Basophils 0.2 % (0.0-1.0); %Eosinophils 0.2 % (0.0-10.0); %Lymphocytes 13.8 % (21.0-51.0); %Monocytes 8.8 % (0.0-10.0); %Neutrophils 76.7 % (42.0-75.0); Hematocrit 46.1 % (36.0-47.0); Hemoglobin 15.3 g/dL (12.0-16.0); Mean Corpuscular HGB CONC 33.2 g/dL (32.0-36.0); Mean Corpuscular Hemoglobin 32.3 pg (27.0-31.0); Mean Corpuscular Volume 97.3 fl (78.0-98.0); Mean Platelet Volume 11.6 fL (7.4-10.4); Platelet Count 115 10x3/uL (130-400); RBC Distribution Width 16.9 % (11.5-14.5); Red Blood Cell (RBC) Count 4.74 mill/uL (4.20-5.40)
[2023-12-25 05:39] LABS: ALT (SGPT) 58 U/L (8-55); AST (SGOT) 67 U/L (5-34); Albumin 3.7 g/dL (3.4-4.8); Alkaline Phosphatase 89 U/L (40-110); Anion Gap 8 mmol/L (10-20); BUN (Urea Nitrogen) 23 mg/dL (9.8-20.1); Bilirubin, Total 1.2 mg/dL (0.2-1.2); Calc. Creatinine Clearance 32 mL/min (70-130); Calcium 9.5 mg/dL (7.8-10.44); Carbon Dioxide 37 mmol/L (23-31); Chloride 97 mmol/L (98-107); Estimated GFR 50; Globulin 2.3 g/dL (2.4-3.5); Glucose 88 mg/dL (83-110); Potassium 3.4 mmol/L (3.5-5.1); Sodium 139 mmol/L (136-145)
[2023-12-25] MEDS: Potassium Chloride 20 MEQ TAB PO SCH (09:57)
[2023-12-25] MEDS: Ipratropium/Albuterol 3 ML NEB NEB SCH (18:29)
[2023-12-25] MEDS: Ipratropium/Albuterol 3 ML NEB NEB PRN (21:31)
[2023-12-26 05:29] LABS: #Monocytes 0.7 thou/uL (0.11-0.59); #Neutrophils 3.9 thou/uL (1.40-6.50); %Basophils 0.2 % (0.0-1.0); %Eosinophils 0.2 % (0.0-10.0); %Lymphocytes 18.5 % (21.0-51.0); %Monocytes 11.8 % (0.0-10.0); %Neutrophils 68.9 % (42.0-75.0); Hematocrit 44.1 % (36.0-47.0); Hemoglobin 14.7 g/dL (12.0-16.0); Mean Corpuscular HGB CONC 33.3 g/dL (32.0-36.0); Mean Corpuscular Hemoglobin 32.2 pg (27.0-31.0); Mean Corpuscular Volume 96.5 fl (78.0-98.0); Mean Platelet Volume 11.1 fL (7.4-10.4); Platelet Count 106 10x3/uL (130-400); RBC Distribution Width 16.8 % (11.5-14.5); Red Blood Cell (RBC) Count 4.57 mill/uL (4.20-5.40); White Blood Cell (WBC) Count 5.7 10x3/uL (4.8-10.8)
[2023-12-26 05:43] LABS: ALT (SGPT) 52 U/L (8-55); AST (SGOT) 52 U/L (5-34); Albumin 3.5 g/dL (3.4-4.8); Alkaline Phosphatase 84 U/L (40-110); Anion Gap 9 mmol/L (10-20); BUN (Urea Nitrogen) 21 mg/dL (9.8-20.1); Bilirubin, Total 1.3 mg/dL (0.2-1.2); Calc. Creatinine Clearance 32 mL/min (70-130); Calcium 9.4 mg/dL (7.8-10.44); Carbon Dioxide 35 mmol/L (23-31); Chloride 99 mmol/L (98-107); Estimated GFR 51; Glucose 92 mg/dL (83-110); Potassium 3.5 mmol/L (3.5-5.1); Protein, Total 5.5 g/dL (5.8-8.1); Sodium 139 mmol/L (136-145)
[2023-12-26] MEDS ORDERED: guaiFENesin 200 MG TAB PO PRN (08:36)
[2023-12-26] MEDS: Lactulose 20 GM (30 mL) UDCUP PO PRN (21:14)
[2023-12-27 05:36] LABS: ALT (SGPT) 50 U/L (8-55); AST (SGOT) 47 U/L (5-34); Albumin 3.5 g/dL (3.4-4.8); Alkaline Phosphatase 85 U/L (40-110); Anion Gap 8 mmol/L (10-20); BUN (Urea Nitrogen) 20 mg/dL (9.8-20.1); Bilirubin, Total 1.4 mg/dL (0.2-1.2); Calc. Creatinine Clearance 31 mL/min (70-130); Calcium 9.4 mg/dL (7.8-10.44); Carbon Dioxide 36 mmol/L (23-31); Chloride 100 mmol/L (98-107); Estimated GFR 49; Glucose 98 mg/dL (83-110); Potassium 3.3 mmol/L (3.5-5.1); Protein, Total 5.5 g/dL (5.8-8.1); Sodium 141 mmol/L (136-145)
[2023-12-27 05:51] LABS: #Monocytes 0.6 thou/uL (0.11-0.59); #Neutrophils 3.7 thou/uL (1.40-6.50); %Basophils 0.2 % (0.0-1.0); %Eosinophils 0.4 % (0.0-10.0); %Lymphocytes 20.1 % (21.0-51.0); %Monocytes 10.5 % (0.0-10.0); %Neutrophils 68.6 % (42.0-75.0); Hematocrit 42.6 % (36.0-47.0); Hemoglobin 14.3 g/dL (12.0-16.0); Mean Corpuscular HGB CONC 33.6 g/dL (32.0-36.0); Mean Corpuscular Hemoglobin 32.4 pg (27.0-31.0); Mean Corpuscular Volume 96.6 fl (78.0-98.0); Mean Platelet Volume 11.1 fL (7.4-10.4); Platelet Count 102 10x3/uL (130-400); RBC Distribution Width 16.6 % (11.5-14.5); Red Blood Cell (RBC) Count 4.41 mill/uL (4.20-5.40); White Blood Cell (WBC) Count 5.3 10x3/uL (4.8-10.8)
[2023-12-27 07:51] LABS: Magnesium 2.3 mg/dL (1.6-2.6); Phosphorus 2.2 mg/dL (2.3-4.7)
[2023-12-27] MEDS: Potassium Chloride 20 MEQ TAB PO SCH (08:27)
[2023-12-27] MEDS: PHOS-NAK 1 PKT PACK PO SCH (10:33)
[2023-12-27 15:00] LABS: Anion Gap 12 mmol/L (10-20); BUN (Urea Nitrogen) 22 mg/dL (9.8-20.1); Calc. Creatinine Clearance 29 mL/min (70-130); Calcium 9.6 mg/dL (7.8-10.44); Carbon Dioxide 31 mmol/L (23-31); Chloride 99 mmol/L (98-107); Estimated GFR 45; Glucose 184 mg/dL (83-110); Potassium 4.4 mmol/L (3.5-5.1); Sodium 138 mmol/L (136-145)
[2023-12-27 15:07] LABS: Phosphorus 2.9 mg/dL (2.3-4.7)
[2023-12-27 15:49] VITALS: BP 116/84; TEMP 97.6
[2023-12-28] MEDS ORDERED: Potassium Chloride 20 MEQ TAB PO SCH (08:00)
== END 2023-12-27 17:30 | DRG 193 ==
LOC: ERS 16:26 → ERHOLD 20:58 → IMCU/EMU 23:44 → 2NO 12-24 12:40
PROVIDERS: ADMIT Emergency Medicine; ATTEND Emergency Medicine
PROC: 5A09357 Assistance with Respiratory Ventilation, Less than 24 Consecutive Hours, Continuous Positive Airway Pressure (ICD-10-PCS; principal; 2023-12-22)
DX: J10.00 Influenza due to other identified influenza virus with unspecified type of pneumonia (principal); J96.21 Acute and chronic respiratory failure with hypoxia; E87.20 Acidosis, unspecified; I50.22 Chronic systolic (congestive) heart failure; I13.0 Hypertensive heart and chronic kidney disease with heart failure and stage 1 through stage 4 chronic kidney disease, or unspecified chronic kidney disease; I48.91 Unspecified atrial fibrillation; N18.31 Chronic kidney disease, stage 3a; D69.6 Thrombocytopenia, unspecified; J44.9 Chronic obstructive pulmonary disease, unspecified; E78.5 Hyperlipidemia, unspecified; G47.00 Insomnia, unspecified; Z91.048 Other nonmedicinal substance allergy status; Z88.0 Allergy status to penicillin; Z79.82 Long term (current) use of aspirin; Z79.899 Other long term (current) drug therapy; Z79.01 Long term (current) use of anticoagulants; Z90.710 Acquired absence of both cervix and uterus; Z90.89 Acquired absence of other organs; Z82.49 Family history of ischemic heart disease and other diseases of the circulatory system; F41.9 Anxiety disorder, unspecified; Z87.891 Personal history of nicotine dependence; G47.33 Obstructive sleep apnea (adult) (pediatric); E87.6 Hypokalemia
CPT/HCPCS: 36415; 71045; 80053; 81001; 82550; 83605; 83735; 83880; 84100; 84145; 84484; 85025; 87040; 87081; 87086; 87449; 87899; 93005; 96365; 96367; J0692; J0696; J1956; J2920; J2930; J3370; J3490; J7620